=== PATIENT | female | born 1985 | race Caucasian/White ===

== ENCOUNTER 2017-02-05 17:31 | Inpatient (IN) ==
[2017-02-05 17:53] LABS: Bilirubin,Urine Negative (Negative); Blood,Urine Moderate (Negative); Clarity,Urine Clear (Clear); Color,Urine Yellow (Yellow); Glucose,Urine (UA) >=1000 mg/dL (Normal); Ketones,Urine Trace mg/dL (Negative); Leukocyte Esterase,Urine Negative (Negative); Nitrite,Urine Negative (Negative); Protein,Urine Negative (Neg-Trace); Specific Gravity,Urine > 1.030 (1.010-1.025); Urobilinogen,Urine Normal (Normal)
[2017-02-05 17:54] LABS: Bacteria,Urine None Seen per hpf (None-Few); Hyaline Casts,Urine None Seen per lpf (None-Few); Squamous Epithelial Cell,Urine Many per lpf (None-Few)
--- NOTE | 2017-02-05 18:39 | Emergency Department Note ---
Disposition Clinical Impression: Suicidal ideation Disposition: Still a Patient Condition: Fair Referrals: NONE,PCP [Primary Care Provider] - Forms: ED Satisfaction Letter Psych HPI - General Chief Complaint: ED Psychiatric Symptoms Stated Complaint: SI Time Seen by Provider: 02/05/17 17:40 Source: patient Mode of arrival: ambulatory Limitations: no limitations Nursing Notes Reviewed: Yes Vital Signs Reviewed: Yes - History of Present Illness HPI Narrative: Patient presents for evaluation of suicidal ideation. Patient has a history of diabetes, migraines, hypertension, pseudoseizures. Patient states she has been undergoing significant stress at her long-term. Patient was kicked out of her long-term earlier today. Patient states that there is multiple arguments they have been picking on her. Patient states all of these things have caused her to be suicidal. Patient states that she is going to takes sleeping pills and Tylenol to kill herself. Patient is clinically medically cleared for psychiatric evaluation. Laberatory testing is still pending. - Related Data Home Medications Medication Instructions Recorded Confirmed Gabapentin [Neurontin] 300 mg PO BID 10/12/14 02/04/17 Insulin Glargine,Hum.rec.anlog 12 unit SQ HS 10/12/14 02/04/17 [Lantus Solostar] LORazepam [Ativan] 0.5 mg PO TID 10/12/14 02/04/17 Meloxicam [Mobic] 7.5 mg PO BID 10/12/14 02/04/17 Divalproex (12 HR) [Depakote (12 500 mg PO HS 01/13/17 02/04/17 HR)] Duloxetine HCl [Cymbalta] 60 mg PO DAILY 01/13/17 02/04/17 Prazosin HCl [Minipress] 2 mg PO BID 01/13/17 02/04/17 Dicyclomine [Bentyl] 10 mg PO Q8H 02/04/17 02/04/17 Promethazine [Phenergan] 25 mg PO Q6HR 02/04/17 02/04/17 Allergies Allergy/AdvReac Type Severity Reaction Status Date / Time sulfamethoxazole Allergy See Verified 01/24/17 13:44 [From Bactrim] Comments trimethoprim [From Bactrim] Allergy See Verified 01/24/17 13:44 Comments propranolol AdvReac Anxiety Verified 01/08/17 20:25 sumatriptan [From Imitrex] AdvReac Hypotension Verified 01/08/17 20:25 Review of Systems: Constitutional: No fever Vision: No blurred vision ENT: No rhinorrhea Respiratory: No cough Allergic: No allergies : No blood in urine GI: No blood in stool Hematologic: No bruising Dermatologic: No skin rash Musculoskeletal: No pain in the extremities Neuro: No numbness of the extremities Psych: Suicidal thoughts Past Medical History - Past Medical History Medical history: Reports: arthritis, diabetes, hypertension, migraine, other Surgical history: Reports: appendectomy, cholecystectomy, colostomy, other ( Multiple orthopedic surgeries) Psychiatric history: Reports: anxiety, depression, PTSD, previous psychiatric hospitalization, other FRAMING AND HANGING history: Reports: no FRAMING AND HANGING history - Social History Smoking Status: Never smoker Smokeless Tobacco Status: No Alcohol use: Reports: none Drug use: Reports: none Physical Exam General: Well appearing, nontoxic, no acute distress Head: Normocephalic Atraumatic Eyes: PERRL, EOMI ENT: Airway patent, no stridor Neck: supple, no meningismus Chest: Lungs clear to auscultation bilateral Cardiac: Regular rate and rhythm, no murmurs, rubs or gallops Abdomen: soft, nontender, nondistended; no guarding, rebound, or tenderness to percussion Musculoskeletal: Calves symmetric, nontender, no palpable cord Skin: No rash, normal skin tone Neuro: Alert and Oriented to person, place, and time; No focal deficit, CN 2-12 symmetric and intact - General Limitations: no limitations General appearance: alert, in no apparent distress Course Course Narrative: Patient with complaints of suicidal ideation and an active plan. Patient will be signed out to the night resident Dr. Colindres. Vital Signs Temperature 97.8 F 02/05/17 17:32 Pulse Rate 106 02/05/17 17:32 Respiratory Rate 16 02/05/17 17:32 Blood Pressure 123/68 02/05/17 17:32 O2 Sat by Pulse Oximetry 97 02/05/17 17:32 Temperature 97.8 F 02/05/17 17:32 Pulse Rate 106 02/05/17 17:32 Respiratory Rate 16 02/05/17 17:32 Blood Pressure 123/68 02/05/17 17:32 O2 Sat by Pulse Oximetry 97 02/05/17 17:32 Oxygen Delivery Oxygen Delivery Room Air Psych - Lab Data Result diagrams: 02/05/17 18:41 02/05/17 18:41 Lab Results 02/05/17 02/05/17 02/05/17 Range/Units 17:15 17:45 18:41 WBC 11.1 (4.3-11.1) K/mcL RBC 4.28 (3.82-4.97) M/mcL Hgb 12.0 (11.5-15.4) g/dL Hct 37.6 (35.3-44.9) % MCV 87.9 (83.0-100.0) fL MCH 28.0 (28.0-33.3) pg MCHC 31.9 (31.6-35.5) g/dL RDW 13.4 (11.5-14.5) % Plt Count 353 (140-400) K/mcL MPV 9.2 L (9.4-12.4) fL Immature Gran % 0.4 (0-4) % Seg Neutrophils % 65.3 % Lymphocytes % 29.3 % Monocytes % 4.7 % Eosinophils % 0.0 % Basophils % 0.3 % Neutrophils # 7.2 (1.6-8.9) K/mcL Lymphocytes # 3.3 (0.6-4.6) K/mcL Monocytes # 0.5 (0.0-1.3) K/mcL Eosinophils # 0.0 (0.0-0.6) K/mcL Basophils # 0.0 (0.0-0.2) K/mcL Sodium (136-145) mEq/L Potassium (3.5-4.5) mEq/L Chloride (98-109) mEq/L Carbon Dioxide (19-29) mEq/L BUN (7-20) mg/dL Creatinine (0.57-1.11) mg/dL Est GFR ( Amer) (> 60) Est GFR (Non-Af Amer) (> 60) BUN/Creatinine Ratio (6-26) Glucose (70-99) mg/dL Calculated Osmolality (280-300) Calcium (8.6-10.8) mg/dL Total Bilirubin (0.2-1.2) mg/dL Direct Bilirubin (0.0-0.5) mg/dL Indirect Bilirubin (0.0-1.2) mg/dL AST (5-34) Units/L ALT (0-55) Units/L Alkaline Phosphatase (38-126) Units/L Serum Total Protein (6.0-8.3) g/dL Albumin (3.5-5.0) g/dL Globulin (2.4-3.5) g/dL Albumin/Globulin Ratio (1.1-2.2) Urine Color Yellow (Yellow) Urine Clarity Clear (Clear) Urine pH 6.0 (5.0-8.0) pH Units Ur Specific Britton > 1.030 H (1.010-1.025) Urine Protein Negative (Neg-Trace) mg/dL Urine Glucose (UA) >=1000 H (Normal) mg/dL Urine Ketones Trace H (Negative) mg/dL Urine Blood Moderate H (Negative) Urine Nitrite Negative (Negative) Urine Bilirubin Negative (Negative) Urine Urobilinogen Normal (Normal) mg/dL Ur Leukocyte Esterase Negative (Negative) Urine Microscopic RBC 3-5 H (0-3) per hpf Urine Microscopic WBC 5-15 H (0-3) per hpf Ur Squamous Epith Cells Many H (None-Few) per lpf Urine Bacteria None Seen (None-Few) per hpf Hyaline Casts None Seen (None-Few) per lpf Ur Culture Indicated? NO (NO) Salicylates (15.0-30.0) mg/dL Urine Opiates Screen Negative (Uojlqv=066) ng/mL Acetaminophen (10-30) mcg/mL Ur Barbiturates Screen Negative (Wvmvor=448) ng/mL Ur Phencyclidine Scrn Negative (Cutoff=25) ng/mL Ur Amphetamines Screen Negative (Juewoh=3507) ng/mL U Benzodiazepines Scrn Negative (Ehmahg=854) ng/mL Urine Cocaine Screen Negative (Cutoff= 300) ng/mL U Marijuana (THC) Screen Negative (Cutoff = 50) ng/mL Ethyl Alcohol (0-10) mg/dL 12/14/17 Range/Units 18:41 WBC (4.3-11.1) K/mcL RBC (3.82-4.97) M/mcL Hgb (11.5-15.4) g/dL Hct (35.3-44.9) % MCV (83.0-100.0) fL MCH (28.0-33.3) pg MCHC (31.6-35.5) g/dL RDW (11.5-14.5) % Plt Count (140-400) K/mcL MPV (9.4-12.4) fL Immature Gran % (0-4) % Seg Neutrophils % % Lymphocytes % % Monocytes % % Eosinophils % % Basophils % % Neutrophils # (1.6-8.9) K/mcL Lymphocytes # (0.6-4.6) K/mcL Monocytes # (0.0-1.3) K/mcL Eosinophils # (0.0-0.6) K/mcL Basophils # (0.0-0.2) K/mcL Sodium 137 (136-145) mEq/L Potassium 4.4 (3.5-4.5) mEq/L Chloride 102 (98-109) mEq/L Carbon Dioxide 27 (19-29) mEq/L BUN 12 (7-20) mg/dL Creatinine 0.69 (0.57-1.11) mg/dL Est GFR ( Amer) > 60 (> 60) Est GFR (Non-Af Amer) > 60 (> 60) BUN/Creatinine Ratio 17 (6-26) Glucose 329 H (70-99) mg/dL Calculated Osmolality 297 (280-300) Calcium 9.1 (8.6-10.8) mg/dL Total Bilirubin 0.2 (0.2-1.2) mg/dL Direct Bilirubin 0.1 (0.0-0.5) mg/dL Indirect Bilirubin 0.1 (0.0-1.2) mg/dL AST 11 (5-34) Units/L ALT 10 (0-55) Units/L Alkaline Phosphatase 117 (38-126) Units/L Serum Total Protein 7.4 (6.0-8.3) g/dL Albumin 3.0 L (3.5-5.0) g/dL Globulin 4.4 H (2.4-3.5) g/dL Albumin/Globulin Ratio 0.7 L (1.1-2.2) Urine Color (Yellow) Urine Clarity (Clear) Urine pH (5.0-8.0) pH Units Ur Specific Britton (1.010-1.025) Urine Protein (Neg-Trace) mg/dL Urine Glucose (UA) (Normal) mg/dL Urine Ketones (Negative) mg/dL Urine Blood (Negative) Urine Nitrite (Negative) Urine Bilirubin (Negative) Urine Urobilinogen (Normal) mg/dL Ur Leukocyte Esterase (Negative) Urine Microscopic RBC (0-3) per hpf Urine Microscopic WBC (0-3) per hpf Ur Squamous Epith Cells (None-Few) per lpf Urine Bacteria (None-Few) per hpf Hyaline Casts (None-Few) per lpf Ur Culture Indicated? (NO) Salicylates < 5.0 L (15.0-30.0) mg/dL Urine Opiates Screen (Irqdms=728) ng/mL Acetaminophen < 1.0 L (10-30) mcg/mL Ur Barbiturates Screen (Ynmhqd=043) ng/mL Ur Phencyclidine Scrn (Cutoff=25) ng/mL Ur Amphetamines Screen (Dimepn=9402) ng/mL U Benzodiazepines Scrn (Oaesyy=229) ng/mL Urine Cocaine Screen (Cutoff= 300) ng/mL U Marijuana (THC) Screen (Cutoff = 50) ng/mL Ethyl Alcohol < 10 (0-10) mg/dL Psychiatric Medical Clearance - Medical Clearance Checklist Medical History: Epileptic seizure (Acute) Suicidal ideation (Acute) Abdominal pain (Inactive) Abdominal pain (Inactive) Abdominal pain (Inactive) Abdominal pain (Inactive) Abdominal pain (Inactive) Abdominal pain (Inactive) Acute anxiety (Inactive) Acute anxiety (Inactive) Acute anxiety (Inactive) Anxiety (Inactive) Anxiety (Inactive) Anxiety (Inactive) Bilateral flank pain (Inactive) Bleeding from colostomy stoma (Inactive) Chronic abdominal pain (Inactive) Chronic abdominal pain (Inactive) Chronic knee pain (Inactive) Chronic pain disorder (Inactive) Constipation (Inactive) Depression (Inactive) Diabetes (Inactive) Diabetes (Inactive) Diabetes (Inactive) Gastroenteritis (Inactive) Major depressive disorder, recurrent (Inactive) Mood disorder (Inactive) Nausea (Inactive) Nausea (Inactive) Nausea and vomiting (Inactive) Noncompliance w/medication treatment due to intermit use of medication (Inactive ) PTSD (post-traumatic stress disorder) (Inactive) Panic attack (Inactive) Personality disorder (Inactive) Pharyngitis (Inactive) Pseudoseizure (Inactive) Psychiatric disorder (Inactive) Recurrent dislocation of right patella (Inactive) Suicidal ideation (Inactive) Suicidal ideations (Inactive) UTI (urinary tract infection) (Inactive) Ventral hernia (Inactive) Vomiting and diarrhea (Inactive) No Social History Section defined Current Vitals: Last Vital Signs Temp 97.8 F 02/05/17 17:32 Pulse 106 02/05/17 17:32 Resp 16 02/05/17 17:32 BP 123/68 02/05/17 17:32 Pulse Ox 97 02/05/17 17:32 Abnormal Labs: Abnormal lab results MPV 9.2 fL (9.4-12.4) L 02/05/17 18:41 Glucose 329 mg/dL (70-99) H 02/05/17 18:41 Albumin 3.0 g/dL (3.5-5.0) L 02/05/17 18:41 Globulin 4.4 g/dL (2.4-3.5) H 02/05/17 18:41 Albumin/Globulin Ratio 0.7 (1.1-2.2) L 02/05/17 18:41 Ur Specific Britton > 1.030 (1.010-1.025) H 02/05/17 17:45 Urine Glucose (UA) >=1000 mg/dL (Normal) H 02/05/17 17:45 Urine Ketones Trace mg/dL (Negative) H 02/05/17 17:45 Urine Blood Moderate (Negative) H 02/05/17 17:45 Urine Microscopic RBC 3-5 per hpf (0-3) H 02/05/17 17:45 Urine Microscopic WBC 5-15 per hpf (0-3) H 02/05/17 17:45 Ur Squamous Epith Cells Many per lpf (None-Few) H 02/05/17 17:45 Salicylates < 5.0 mg/dL (15.0-30.0) L 02/05/17 18:41 Acetaminophen < 1.0 mcg/mL (10-30) L 02/05/17 18:41 Attestation Statement - Attestation Attestation: I examined this patient and my medical decision-making was reviewed with the Resident Physician. I agree with the documented findings, disposition and treatment plan as described.
[2017-02-05 18:52] LABS: Basophils % 0.3 %; Hematocrit 37.6 % (35.3-44.9); Immature Granulocytes % 0.4 % (0-4); Lymphocytes # 3.3 K/mcL (0.6-4.6); Lymphocytes % 29.3 %; Mean Corpuscular HGB Conc 31.9 g/dL (31.6-35.5); Mean Corpuscular Volume 87.9 fL (83.0-100.0); Mean Platelet Volume 9.2 fL (9.4-12.4); Monocytes # 0.5 K/mcL (0.0-1.3); Monocytes % 4.7 %; Neutrophils # 7.2 K/mcL (1.6-8.9); Platelet Count 353 K/mcL (140-400); Red Blood Count 4.28 M/mcL (3.82-4.97); Red Cell Distribution Width 13.4 % (11.5-14.5); Segmented Neutrophils % 65.3 %
[2017-02-05 19:07] LABS: Acetaminophen < 1.0 mcg/mL (10-30); Alanine Aminotransferase 10 Units/L (0-55); Albumin/Globulin Ratio 0.7 (1.1-2.2); Alkaline Phosphatase 117 Units/L (38-126); Aspartate Amino Transferase 11 Units/L (5-34); BUN/Creatinine Ratio 17 (6-26); Bilirubin,Direct 0.1 mg/dL (0.0-0.5); Bilirubin,Indirect 0.1 mg/dL (0.0-1.2); Bilirubin,Total 0.2 mg/dL (0.2-1.2); Blood Urea Nitrogen 12 mg/dL (7-20); Calcium 9.1 mg/dL (8.6-10.8); Carbon Dioxide 27 mEq/L (19-29); Chloride 102 mEq/L (98-109); Ethanol < 10 mg/dL (0-10); Globulin 4.4 g/dL (2.4-3.5); Glucose 329 mg/dL (70-99); Osmolality,Calculated 297 (280-300); Potassium 4.4 mEq/L (3.5-4.5); Salicylate < 5.0 mg/dL (15.0-30.0); Sodium 137 mEq/L (136-145); Total Protein 7.4 g/dL (6.0-8.3); eGFR For African Americans > 60 (> 60); eGFR For Non-African Americans > 60 (> 60)
[2017-02-05 19:07] LABS: Amphetamine Screen,Urine Negative ng/mL (Cutoff=1000); Barbiturate Screen,Urine Negative ng/mL (Cutoff=200); Benzodiazepines Screen,Urine Negative ng/mL (Cutoff=200); Cannabinoid Screen,Urine Negative ng/mL (Cutoff = 50); Cocaine Screen,Urine Negative ng/mL (Cutoff= 300); Opiate Screen,Urine Negative ng/mL (Cutoff=300); Phencyclidine Screen,Urine Negative ng/mL (Cutoff=25)
[2017-02-05] MEDS ORDERED: Ibuprofen 600 MG TABLET PO ONE (19:12)
--- NOTE | 2017-02-05 23:41 | Emergency Department Note ---
Disposition Clinical Impression: Suicidal ideation Disposition: Still a Patient Condition: Fair Psych HPI - General Chief Complaint: ED Psychiatric Symptoms Stated Complaint: SI Time Seen by Provider: 02/05/17 17:40 Source: patient Mode of arrival: ambulatory Limitations: no limitations Nursing Notes Reviewed: Yes Vital Signs Reviewed: Yes - History of Present Illness HPI Narrative: 31-year-old female signed out to me by the ED team for suicidal ideation with plan. The patient was signed out by the day team and 1 a consultation was pending. Please refer to their note for history of present illness. - Related Data Home Medications Medication Instructions Recorded Confirmed Gabapentin [Neurontin] 300 mg PO BID 10/12/14 02/06/17 Insulin Glargine,Hum.rec.anlog 12 unit SQ HS 10/12/14 02/06/17 [Lantus Solostar] LORazepam [Ativan] 0.5 mg PO TID 10/12/14 02/06/17 Meloxicam [Mobic] 7.5 mg PO BID 10/12/14 02/06/17 Divalproex (12 HR) [Depakote (12 500 mg PO QAM 01/13/17 02/06/17 HR)] Duloxetine HCl [Cymbalta] 60 mg PO DAILY 01/13/17 02/06/17 Prazosin HCl [Minipress] 2 mg PO BID 01/13/17 02/06/17 Dicyclomine [Bentyl] 10 mg PO Q8H 02/04/17 02/06/17 Promethazine [Phenergan] 25 mg PO Q6HR 02/04/17 02/06/17 Atorvastatin [Lipitor] 10 mg PO HS 02/06/17 02/06/17 DULoxetine [Cymbalta] 20 mg PO DAILY 02/06/17 02/06/17 Divalproex Sodium [Depakote] 250 mg PO HS 02/06/17 02/06/17 Tizanidine HCl 2 mg PO BID 02/06/17 02/06/17 Allergies Allergy/AdvReac Type Severity Reaction Status Date / Time sulfamethoxazole Allergy See Verified 01/24/17 13:44 [From Bactrim] Comments trimethoprim [From Bactrim] Allergy See Verified 01/24/17 13:44 Comments propranolol AdvReac Anxiety Verified 01/08/17 20:25 sumatriptan [From Imitrex] AdvReac Hypotension Verified 01/08/17 20:25 All systems ED: reviewed and negative except as stated. Constitutional: Denies: fever, chills Eyes: Reports: as per HPI ENT ED: Reports: as per HPI Cardiovascular: Denies: chest pain, palpitations Respiratory: Denies: cough, dyspnea Gastrointestinal: Denies: abdominal pain, nausea Genitourinary: Reports: as per HPI Musculoskeletal: Reports: as per HPI Integumentary: Reports: as per HPI Neurological: Reports: as per HPI Psychiatric: Reports: as per HPI Endocrine: Reports: as per HPI Hematological/Lymphatic: Reports: as per HPI Allergic/Immunologic: Reports: as per HPI Past Medical History - Past Medical History Attestation: Yes The following information was validated with the patient. Medical history: Reports: arthritis, diabetes, hypertension, migraine, other Surgical history: Reports: appendectomy, cholecystectomy, colostomy, other ( Multiple orthopedic surgeries) Psychiatric history: Reports: anxiety, depression, PTSD, previous psychiatric hospitalization, other [employer] history: Reports: no [employer] history - Social History Smoking Status: Never smoker Smokeless Tobacco Status: No Alcohol use: Reports: none Drug use: Reports: none Physical Exam - General Limitations: no limitations General appearance: alert, in no apparent distress - Head Head exam: atraumatic, normocephalic, normal inspection - Eye Eye exam: Present: normal appearance. Absent: scleral icterus, conjunctival injection - Chest Chest inspection: Present: normal inspection, symmetric chest wall rise. Absent : tenderness, rash - Respiratory Respiratory exam: Present: normal lung sounds bilaterally, respiratory distress. Absent: wheezes - Cardiovascular Cardiovascular exam: Present: regular rate, normal rhythm, normal heart sounds - Abdominal Exam Abdominal exam: Present: soft, Non-Tender. Absent: distention, guarding, rebound - Extremities Exam Extremities exam: Present: full ROM. Absent: tenderness - Neurological Exam Neurological exam: Present: alert, oriented X3 - Psychiatric Psychiatric exam: Present: depressed, suicidal ideation - Skin Skin exam: Present: warm, intact Course Course Narrative: 31-year-old female signed out by the day team for suicidal ideation with plan. Laboratory results have completed. I have spoke with one A after their consultation and they would like the patient to be placed at an outside psychiatric facility. I provided patient with ibuprofen for muscle aches and Benadryl to help her sleep she states this is normally what she takes at home. Patient is alert and oriented 3 in the room with stable vital signs. Disposition pending placement. - Reevaluation(s) Reevaluation #1: 1A has assessed the patient and feel she needs inpatient psychiatric care. Patient will be held in the emergency department until an opening at the psychiatric [facility] is open. She is alert and oriented 3 in the room with stable vital signs at this time. She agrees with this plan. I will sign the patient out to the day team pending transfer to a facility. Vital Signs Temperature 97.8 F 02/05/17 17:32 Pulse Rate 106 02/05/17 17:32 Respiratory Rate 16 02/05/17 17:32 Blood Pressure 123/68 02/05/17 17:32 O2 Sat by Pulse Oximetry 97 02/05/17 17:32 Temperature 97.5 F L 02/06/17 21:00 Pulse Rate 63 02/06/17 21:00 Respiratory Rate 16 02/06/17 21:00 Blood Pressure 116/76 02/06/17 21:00 O2 Sat by Pulse Oximetry 97 02/06/17 05:40 Oxygen Delivery Oxygen Delivery Room Air Psych - Lab Data Result diagrams: 02/05/17 18:41 02/05/17 18:41 Lab Results 02/05/17 02/05/17 02/05/17 Range/Units 17:15 17:45 18:41 WBC 11.1 (4.3-11.1) K/mcL RBC 4.28 (3.82-4.97) M/mcL Hgb 12.0 (11.5-15.4) g/dL Hct 37.6 (35.3-44.9) % MCV 87.9 (83.0-100.0) fL MCH 28.0 (28.0-33.3) pg MCHC 31.9 (31.6-35.5) g/dL RDW 13.4 (11.5-14.5) % Plt Count 353 (140-400) K/mcL MPV 9.2 L (9.4-12.4) fL Immature Gran % 0.4 (0-4) % Seg Neutrophils % 65.3 % Lymphocytes % 29.3 % Monocytes % 4.7 % Eosinophils % 0.0 % Basophils % 0.3 % Neutrophils # 7.2 (1.6-8.9) K/mcL Lymphocytes # 3.3 (0.6-4.6) K/mcL Monocytes # 0.5 (0.0-1.3) K/mcL Eosinophils # 0.0 (0.0-0.6) K/mcL Basophils # 0.0 (0.0-0.2) K/mcL Sodium (136-145) mEq/L Potassium (3.5-4.5) mEq/L Chloride (98-109) mEq/L Carbon Dioxide (19-29) mEq/L BUN (7-20) mg/dL Creatinine (0.57-1.11) mg/dL Est GFR ( Amer) (> 60) Est GFR (Non-Af Amer) (> 60) BUN/Creatinine Ratio (6-26) Glucose (70-99) mg/dL POC Glucose (58-89) Calculated Osmolality (280-300) Calcium (8.6-10.8) mg/dL Total Bilirubin (0.2-1.2) mg/dL Direct Bilirubin (0.0-0.5) mg/dL Indirect Bilirubin (0.0-1.2) mg/dL AST (5-34) Units/L ALT (0-55) Units/L Alkaline Phosphatase (38-126) Units/L Serum Total Protein (6.0-8.3) g/dL Albumin (3.5-5.0) g/dL Globulin (2.4-3.5) g/dL Albumin/Globulin Ratio (1.1-2.2) Beta-Hydroxybutyric Acd (0.02-0.27) mmol/L Urine Color Yellow (Yellow) Urine Clarity Clear (Clear) Urine pH 6.0 (5.0-8.0) pH Units Ur Specific [place] > 1.030 H (1.010-1.025) Urine Protein Negative (Neg-Trace) mg/dL Urine Glucose (UA) >=1000 H (Normal) mg/dL Urine Ketones Trace H (Negative) mg/dL Urine Blood Moderate H (Negative) Urine Nitrite Negative (Negative) Urine Bilirubin Negative (Negative) Urine Urobilinogen Normal (Normal) mg/dL Ur Leukocyte Esterase Negative (Negative) Urine Microscopic RBC 3-5 H (0-3) per hpf Urine Microscopic WBC 5-15 H (0-3) per hpf Ur Squamous Epith Cells Many H (None-Few) per lpf Urine Bacteria None Seen (None-Few) per hpf Hyaline Casts None Seen (None-Few) per lpf Ur Culture Indicated? NO (NO) Salicylates (15.0-30.0) mg/dL Urine Opiates Screen Negative (Djfwff=616) ng/mL Acetaminophen (10-30) mcg/mL Ur Barbiturates Screen Negative (Kfbycw=519) ng/mL Ur Phencyclidine Scrn Negative (Cutoff=25) ng/mL Ur Amphetamines Screen Negative (Klrwka=2385) ng/mL U Benzodiazepines Scrn Negative (Yuyyms=864) ng/mL Urine Cocaine Screen Negative (Cutoff= 300) ng/mL U Marijuana (THC) Screen Negative (Cutoff = 50) ng/mL Ethyl Alcohol (0-10) mg/dL 02/05/17 02/05/17 02/06/17 Range/Units 18:41 18:41 07:46 WBC (4.3-11.1) K/mcL RBC (3.82-4.97) M/mcL Hgb (11.5-15.4) g/dL Hct (35.3-44.9) % MCV (83.0-100.0) fL MCH (28.0-33.3) pg MCHC (31.6-35.5) g/dL RDW (11.5-14.5) % Plt Count (140-400) K/mcL MPV (9.4-12.4) fL Immature Gran % (0-4) % Seg Neutrophils % % Lymphocytes % % Monocytes % % Eosinophils % % Basophils % % Neutrophils # (1.6-8.9) K/mcL Lymphocytes # (0.6-4.6) K/mcL Monocytes # (0.0-1.3) K/mcL Eosinophils # (0.0-0.6) K/mcL Basophils # (0.0-0.2) K/mcL Sodium 137 (136-145) mEq/L Potassium 4.4 (3.5-4.5) mEq/L Chloride 102 (98-109) mEq/L Carbon Dioxide 27 (19-29) mEq/L BUN 12 (7-20) mg/dL Creatinine 0.69 (0.57-1.11) mg/dL Est GFR ( Amer) > 60 (> 60) Est GFR (Non-Af Amer) > 60 (> 60) BUN/Creatinine Ratio 17 (6-26) Glucose 329 H (70-99) mg/dL POC Glucose 185 H (58-89) Calculated Osmolality 297 (280-300) Calcium 9.1 (8.6-10.8) mg/dL Total Bilirubin 0.2 (0.2-1.2) mg/dL Direct Bilirubin 0.1 (0.0-0.5) mg/dL Indirect Bilirubin 0.1 (0.0-1.2) mg/dL AST 11 (5-34) Units/L ALT 10 (0-55) Units/L Alkaline Phosphatase 117 (38-126) Units/L Serum Total Protein 7.4 (6.0-8.3) g/dL Albumin 3.0 L (3.5-5.0) g/dL Globulin 4.4 H (2.4-3.5) g/dL Albumin/Globulin Ratio 0.7 L (1.1-2.2) Beta-Hydroxybutyric Acd 0.10 (0.02-0.27) mmol/L Urine Color (Yellow) Urine Clarity (Clear) Urine pH (5.0-8.0) pH Units Ur Specific [place] (1.010-1.025) Urine Protein (Neg-Trace) mg/dL Urine Glucose (UA) (Normal) mg/dL Urine Ketones (Negative) mg/dL Urine Blood (Negative) Urine Nitrite (Negative) Urine Bilirubin (Negative) Urine Urobilinogen (Normal) mg/dL Ur Leukocyte Esterase (Negative) Urine Microscopic RBC (0-3) per hpf Urine Microscopic WBC (0-3) per hpf Ur Squamous Epith Cells (None-Few) per lpf Urine Bacteria (None-Few) per hpf Hyaline Casts (None-Few) per lpf Ur Culture Indicated? 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) Borderline personality disorder (Acute) PCOS (polycystic ovarian syndrome) (Acute) Dwarfism (Acute) Abdominal pain (Inactive) Abdominal pain (Inactive) Abdominal pain (Inactive) Abdominal pain (Inactive) Abdominal pain (Inactive) Abdominal pain (Inactive) Acute anxiety (Inactive) Acute anxiety (Inactive) Acute anxiety (Inactive) Anxiety (Inactive) Anxiety (Inactive) Anxiety (Inactive) Bilateral flank pain (Inactive) Bleeding from colostomy stoma (Inactive) Chronic abdominal pain (Inactive) Chronic abdominal pain (Inactive) Chronic knee pain (Inactive) Chronic pain disorder (Inactive) Constipation (Inactive) Depression (Inactive) Diabetes (Inactive) Diabetes (Inactive) Diabetes (Inactive) Gastroenteritis (Inactive) Major depressive disorder, recurrent (Inactive) Mood disorder (Inactive) Nausea (Inactive) Nausea (Inactive) Nausea and vomiting (Inactive) Noncompliance w/medication treatment due to intermit use of medication (Inactive ) PTSD (post-traumatic stress disorder) (Inactive) Panic attack (Inactive) Personality disorder (Inactive) Pharyngitis (Inactive) Pseudoseizure (Inactive) Psychiatric disorder (Inactive) Recurrent dislocation of right patella (Inactive) Suicidal ideation (Inactive) Suicidal ideations (Inactive) UTI (urinary tract infection) (Inactive) Ventral hernia (Inactive) Vomiting and diarrhea (Inactive) No Social History Section defined Current Vitals: Last Vital Signs Temp 97.5 F L 02/06/17 21:00 Pulse 63 02/06/17 21:00 Resp 16 02/06/17 21:00 BP 116/76 02/06/17 21:00 Pulse Ox 97 02/06/17 05:40 Abnormal Labs: Abnormal lab results MPV 9.2 fL (9.4-12.4) L 02/05/17 18:41 Glucose 329 mg/dL (70-99) H 02/05/17 18:41 POC Glucose 273 (58-89) H 02/06/17 20:45 Albumin 3.0 g/dL (3.5-5.0) L 02/05/17 18:41 Globulin 4.4 g/dL (2.4-3.5) H 02/05/17 18:41 Albumin/Globulin Ratio 0.7 (1.1-2.2) L 02/05/17 18:41 Ur Specific [place] > 1.030 (1.010-1.025) H 02/05/17 17:45 Urine Glucose (UA) >=1000 mg/dL (Normal) H 02/05/17 17:45 Urine Ketones Trace mg/dL (Negative) H 02/05/17 17:45 Urine Blood Moderate (Negative) H 02/05/17 17:45 Urine Microscopic RBC 3-5 per hpf (0-3) H 02/05/17 17:45 Urine Microscopic WBC 5-15 per hpf (0-3) H 02/05/17 17:45 Ur Squamous Epith Cells Many per lpf (None-Few) H 02/05/17 17:45 Salicylates < 5.0 mg/dL (15.0-30.0) L 02/05/17 18:41 Acetaminophen < 1.0 mcg/mL (10-30) L 02/05/17 18:41 Attestation Statement - Attestation Attestation: I examined this patient and my medical decision-making was reviewed with the Resident Physician. I agree with the documented findings, disposition and treatment plan as described.
[2017-02-05] MEDS ORDERED: Insulin DETEMIR 100 UNIT/ML X5UNITS SQ ONE (23:58)
--- NOTE | 2017-02-06 07:57 | Emergency Department Note ---
START Narrative - START START: Patient taken over from the nighttime physician Dr. Hammond. Patient is to be placed by psychiatric team at this time. I will reestablish to make sure that the pink slip and chart. Patient's medical clearances are to being established. Psychiatric placement to be done at this time. Provided the patient in the a.m. shift. No other changes in medical presentation or vital signs. Clearance will be completed. Repeat Accu-Chek was 185 at this time. Vital signs otherwise stable at this point. Medical clearance and placement of established at this point 0945 Patient will be admitted to our facility for psychiatric evaluation. Bed placement to be established at this time
--- NOTE | 2017-02-06 13:29 | Psychiatry History & Physical ---
Date of Encounter: 02/06/17 Time of Encounter: 13:20 History of Present Illness Patient Stated Chief Complaint: I am homeless and I am going to kill myself Medicare Admission Attestation: For traditional Medicare patients the provided hospital inpatient services are reasonable and necessary and in the case of services not specified as inpatient -only under 42 CFR 419.22 (n), that they are appropriately provided as inpatient services in accordance 42 CFR 412.3. For Critical Access Hospital the patient may reasonably be expected to be discharged or transferred to a hospital within 96 hours after admission to the Critical Access Hospital. Admitted From: Emergency Dept History of Present Illness: Ms. Collins is a 31 year old female This patient is known to want a I been able to review to the recent discharge summary. The patient was in the [facility] and she had a disagreement with the diabetes clinical manager there. She was brought to the emergency room. At that time she complains worsening PTSD and stated that she would kill herself. Specific reasons were not always given but she indicated that she did not want to go to the [facility]. In fact she said that she could go to another place [facility]. However the patient's predicament necessitated hospitalization very History of present illness. The patient reports developing PTSD 5 years ago stressors that her father she recalls having dissociation or hallucinations when he on March 30. She is able to identify depersonalization flashbacks seeing evidence of things emesis as a slide show. The patient's been treated in the most recent medicine prazosin at 2 mg twice a day has been helpful. The patient has been continuing counseling but reports that she is reached a therapeutic impasse. She can get past her mother's but cannot get past her father's . 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 She is currently on Depakote 500 every morning 250 2 PM. She was also told that she had hydrocephalus. She is on gabapentin for pain she is on Cymbalta for pain when she is on no other anticonvulsants that I can say. The patient has been told that she has reported borderline personality disorder. She has been in counseling since the time that she was born. The patient notes that when her grandmother she began having problems. She reports as a child she may have had inattention in school. The patient reports that she has PCO S, polycystic ovary disease and that she has oligomenorrhea. When she attempted to get control she was told that she could not have any children because this would interfere with her abdominal surgery. The patient is 4 feet 6 inches tall. She has dwarfism. The etiology of the dwarfism is not now. She reports that she was placed on growth hormone but grew only 1 inch. Shoes she never had genetic testing as a child. She has a positive family history for short stature. This includes her sister who is 4 foot 9 and members of her father's family who are probably for tender below. Past psychiatric history reveals the patient has multiple psychiatric hospitalizations the readers referred to this but she tends to call the unit from time to time and has a variety of interpersonal difficulties. Past medical history. Surgery there are multiple abdominal surgeries and the patient has had a colostomy placed. 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 She was told that she spent 6 days in the hospital after and that she had jaundice after she has never had a ventricle peritoneal shunt or any other treatment for hydrocephalus. Illnesses: Diabetes mellitus arthritis degenerative joint disease PCO S UTI history of blocked biliary duct. Allergies act from, Imitrex, propranolol. The patient was born 3 weeks premature. Social history: The patient lived all over but primarily in [place] in [place]. She attended some college but she got sicker and had surgery. She has had 7 knee surgeries she has had 4 stomach surgeries she never . Family history: Is positive for mother who had 3-4 mental breakdowns. The patient's father had paranoia and then later when he got sick developed PBA bows untreated a paternal uncle had trouble with alcohol. The patient denies any family history of drug abuse or suicide. Review of systems. The patient's had a colonoscopy. She is currently on no control. She is AB 0. Past Med Surg Social Fam HX - Past Medical History Medical history: arthritis, diabetes, hypertension, migraine, other - Past Surgical History Surgical History: appendectomy, cholecystectomy, colostomy, other - Social History Smoking Status: Never smoker Smokeless Tobacco Status: No Alcohol use: none Drug use: none - Family History Father History Unknown: Yes Adopted: [place]: Red Collins Age: 50 Family Member Ethnicity: Non- Living Status: Age at : 50 Cause of : heart failure secondary to diabetes Hx Family Cardiac Disorders: Yes Hx Family Respiratory Disorders: No Hx Family Cancer: No Hx Family GI Disorders: Yes (IBS) Hx Family Genitourinary Disorders: No Hx Family Endocrine Disorder: Yes (diabetes) Hx Family Musculoskeletal Disorders: Yes (BTK amputee bilateral secondary to diabetes) Hx Family Neuromuscular Disorders: No Hx Family Neurologic Disorders: No Hx Family HEENT Disorders: No Hx Family Autoimmune Disorders: No Hx Family Reproductive Disorders: No Hx Family Psychosocial Disorders: Yes (paranoia) Hx Family Medical Disorders: Yes Medications & Allergies Gabapentin [Neurontin] 300 mg PO BID 10/12/14 [History] Insulin Glargine,Hum.rec.anlog [Lantus Solostar] 12 unit SQ HS 10/12/14 [History ] LORazepam [Ativan] 0.5 mg PO TID 10/12/14 [History] Meloxicam [Mobic] 7.5 mg PO BID 10/12/14 [History] Divalproex (12 HR) [Depakote (12 HR)] 500 mg PO QAM 01/13/17 [History] Duloxetine HCl [Cymbalta] 60 mg PO DAILY 01/13/17 [History] Prazosin HCl [Minipress] 2 mg PO BID 01/13/17 [History] Dicyclomine [Bentyl] 10 mg PO Q8H 02/04/17 [History] Promethazine [Phenergan] 25 mg PO Q6HR 02/04/17 [History] Atorvastatin [Lipitor] 10 mg PO HS 02/06/17 [History] DULoxetine [Cymbalta] 20 mg PO DAILY 02/06/17 [History] Divalproex Sodium [Depakote] 250 mg PO HS 02/06/17 [History] Tizanidine HCl 2 mg PO BID 02/06/17 [History] 3 Allergy/AdvReac Type Severity Reaction Status Date / Time sulfamethoxazole Allergy See Verified 01/24/17 13:44 [From Bactrim] Comments trimethoprim [From Bactrim] Allergy See Verified 01/24/17 13:44 Comments propranolol AdvReac Anxiety Verified 01/08/17 20:25 sumatriptan [From Imitrex] AdvReac Hypotension Verified 01/08/17 20:25 Review of Systems Gastrointestinal: Reports: constipation Musculoskeletal: Reports: back pain, myalgia Psychiatric: Reports: suicidal ideation, homicidal ideation, mood swings Mental Status Exam Patient orientation: Yes Person, Yes Time, Yes Place, Yes Circumstance Level of alertness: Follows commands Patient appearance: Well Groomed Behavior: anxious, hostile Psychomotor activity: Normal Eye contact: Maintains Eye Contact Mood description: Depressed, Anxious Affect description: full range Speech pattern: Appropriate Speech volume: Normal Thought process: Logical Thought content: Yes Suicidal ideation, Yes Obsessive thoughts Attention span: Capable of Focused Attention Memory description: Grossly Intact Patient reliability: Questionable Historian Intelligence estimate: Average Judgment: Fair Insight: Partial Exam - HEENT Eye exam IM: Present: EOMI ENT exam IM: Present: mucous membranes dry - Neurological Neurological exam IM: Present: CN II-XII intact, oriented X3 - Respiratory Respiratory exam IM: Present: CTAB - GI/Abdominal GI/Abdominal exam IM: Present: distended - Extremities Extremities exam IM: Present: full ROM - Skin Skin exam IM: Present: dry Results - Vital Signs Vital signs: Temp Pulse Resp BP Pulse Ox 98.2 F 83 18 105/73 97 02/06/17 10:25 02/06/17 10:25 02/06/17 10:25 02/06/17 10:25 02/06/17 05:40 - Drug Levels and Toxicology Drug Levels and Toxicology: high blood sugar - Labs Labs: Laboratory Last Values WBC 11.1 K/mcL (4.3-11.1) 02/05/17 18:41 RBC 4.28 M/mcL (3.82-4.97) 02/05/17 18:41 Hgb 12.0 g/dL (11.5-15.4) 02/05/17 18:41 Hct 37.6 % (35.3-44.9) 02/05/17 18:41 MCV 87.9 fL (83.0-100.0) 02/05/17 18:41 MCH 28.0 pg (28.0-33.3) 02/05/17 18:41 MCHC 31.9 g/dL (31.6-35.5) 02/05/17 18:41 RDW 13.4 % (11.5-14.5) 02/05/17 18:41 Plt Count 353 K/mcL (140-400) 02/05/17 18:41 MPV 9.2 fL (9.4-12.4) L 02/05/17 18:41 Immature Gran % 0.4 % (0-4) 02/05/17 18:41 Seg Neutrophils % 65.3 % 02/05/17 18:41 Lymphocytes % 29.3 % 02/05/17 18:41 Monocytes % 4.7 % 02/05/17 18:41 Eosinophils % 0.0 % 02/05/17 18:41 Basophils % 0.3 % 02/05/17 18:41 Neutrophils # 7.2 K/mcL (1.6-8.9) 02/05/17 18:41 Lymphocytes # 3.3 K/mcL (0.6-4.6) 02/05/17 18:41 Monocytes # 0.5 K/mcL (0.0-1.3) 02/05/17 18:41 Eosinophils # 0.0 K/mcL (0.0-0.6) 02/05/17 18:41 Basophils # 0.0 K/mcL (0.0-0.2) 02/05/17 18:41 Sodium 137 mEq/L (136-145) 02/05/17 18:41 Potassium 4.4 mEq/L (3.5-4.5) 02/05/17 18:41 Chloride 102 mEq/L (98-109) 02/05/17 18:41 Carbon Dioxide 27 mEq/L (19-29) 02/05/17 18:41 BUN 12 mg/dL (7-20) 02/05/17 18:41 Creatinine 0.69 mg/dL (0.57-1.11) 02/05/17 18:41 Est GFR ( Amer) > 60 (> 60) 02/05/17 18:41 Est GFR (Non-Af Amer) > 60 (> 60) 02/05/17 18:41 BUN/Creatinine Ratio 17 (6-26) 02/05/17 18:41 Glucose 329 mg/dL (70-99) H 02/05/17 18:41 POC Glucose 185 (58-89) H 02/06/17 07:46 Calculated Osmolality 297 (280-300) 02/05/17 18:41 Calcium 9.1 mg/dL (8.6-10.8) 02/05/17 18:41 Total Bilirubin 0.2 mg/dL (0.2-1.2) 02/05/17 18:41 Direct Bilirubin 0.1 mg/dL (0.0-0.5) 02/05/17 18:41 Indirect Bilirubin 0.1 mg/dL (0.0-1.2) 02/05/17 18:41 AST 11 Units/L (5-34) 02/05/17 18:41 ALT 10 Units/L (0-55) 02/05/17 18:41 Alkaline Phosphatase 117 Units/L (38-126) 02/05/17 18:41 Serum Total Protein 7.4 g/dL (6.0-8.3) 02/05/17 18:41 Albumin 3.0 g/dL (3.5-5.0) L 02/05/17 18:41 Globulin 4.4 g/dL (2.4-3.5) H 02/05/17 18:41 Albumin/Globulin Ratio 0.7 (1.1-2.2) L 02/05/17 18:41 Beta-Hydroxybutyric Acd 0.10 mmol/L (0.02-0.27) 02/05/17 18:41 Urine Color Yellow (Yellow) 02/05/17 17:45 Urine Clarity Clear (Clear) 02/05/17 17:45 Urine pH 6.0 pH Units (5.0-8.0) 02/05/17 17:45 Ur Specific [place] > 1.030 (1.010-1.025) H 02/05/17 17:45 Urine Protein Negative mg/dL (Neg-Trace) 02/05/17 17:45 Urine Glucose (UA) >=1000 mg/dL (Normal) H 02/05/17 17:45 Urine Ketones Trace mg/dL (Negative) H 02/05/17 17:45 Urine Blood Moderate (Negative) H 02/05/17 17:45 Urine Nitrite Negative (Negative) 02/05/17 17:45 Urine Bilirubin Negative (Negative) 02/05/17 17:45 Urine Urobilinogen Normal mg/dL (Normal) 02/05/17 17:45 Ur Leukocyte Esterase Negative (Negative) 02/05/17 17:45 Urine Microscopic RBC 3-5 per hpf (0-3) H 02/05/17 17:45 Urine Microscopic WBC 5-15 per hpf (0-3) H 02/05/17 17:45 Ur Squamous Epith Cells Many per lpf (None-Few) H 02/05/17 17:45 Urine Bacteria None Seen per hpf (None-Few) 02/05/17 17:45 Hyaline Casts None Seen per lpf (None-Few) 12 17:45 Ur Culture Indicated? NO (NO) 02/05/17 17:45 Salicylates < 5.0 mg/dL (15.0-30.0) L 02/05/17 18:41 Urine Opiates Screen Negative ng/mL (Reyhbh=132) 02/05/17 17:15 Acetaminophen < 1.0 mcg/mL (10-30) L 02/05/17 18:41 Ur Barbiturates Screen Negative ng/mL (Bgkcnn=586) 02/05/17 17:15 Ur Phencyclidine Scrn Negative ng/mL (Cutoff=25) 02/05/17 17:15 Ur Amphetamines Screen Negative ng/mL (Ncxeuw=2835) 02/05/17 17:15 U Benzodiazepines Scrn Negative ng/mL (Bmkpkg=459) 02/05/17 17:15 Urine Cocaine Screen Negative ng/mL (Cutoff= 300) 02/05/17 17:15 U Marijuana (THC) Screen Negative ng/mL (Cutoff = 50) 02/05/17 17:15 Ethyl Alcohol < 10 mg/dL (0-10) 02/05/17 18:41 Assessment and Plan (1) Chronic post-traumatic stress disorder Current visit: Yes Status: Acute Plan: Admit inpatient for safety and stabilization, Close observation Additional Plan: This patient may benefit from trazodone 25 mg daily at bedtime. Cymbalta is being used for pain and is currently at 80 mg per day. It may help with the pain from a pinched nerve. For patients with PNES and antidepressant may be helpful such as an SSRI. The patient could also be considered for Pristiq worked that seem which may help with pain and movement. The patient is on Depakote this can sometimes make worsening oligomenorrhea. A Depakote level would be helpful. The patient may benefit from reexamining placement the [facility] as this may be a appropriate facility. Ongoing psychotherapy would be helpful for this patient in reducing seizure- like events may also be helpful. The patient's report of PTSD is based on traumatic events that were not necessarily life-threatening but this may be useful diagnosis help guide therapy. The patient reports that Remeron made her suicidal so this medicine should be avoided. Risks, benefits, side effects, alternatives discussed w/pt: Yes Patient agreeable to treatment: Yes (2) Conversion disorder with seizures or convulsions Current visit: Yes Status: Acute Plan: Monitor sleep, Monitor appetite Risks, benefits, side effects, alternatives discussed w/pt: Yes Patient agreeable to treatment: Yes Plans for Post Hospital Care: Home (3) Borderline personality disorder Current visit: Yes Status: Acute Plan: Encourage participation in unit milieu, Secure weapons Risks, benefits, side effects, alternatives discussed w/pt: Yes Patient agreeable to treatment : Yes Plans for Post Hospital Care: Home (4) PCOS (polycystic ovarian syndrome) Current visit: Yes Status: Acute Risks, benefits, side effects, alternatives discussed w/pt: No Patient agreeable to treatment: No Plans for Post Hospital Care: Home (5) Dwarfism Current visit: Yes Status: Acute Risks, benefits, side effects, alternatives discussed w/pt: No Patient agreeable to treatment: No Plans for Post Hospital Care: Home (6) Suicidal ideation Current visit: Yes Status: Acute Plan: Suicide Precautions per unit protocol, Secure weapons Risks, benefits, side effects, alternatives discussed w/pt: Yes Patient agreeable to treatment : Yes Plans for Post Hospital Care: Home
[2017-02-06] MEDS ORDERED: *HR* LORazepam 2 MG/ML VIAL IM PRN (16:13)
[2017-02-06] MEDS ORDERED: Mag Hydrox/Al Hydrox/Simeth 30 ML UDC PO PRN (16:13)
[2017-02-06] MEDS ORDERED: hydrOXYzine pamoate 25 MG CAPSULE PO PRN (16:13)
[2017-02-06] MEDS ORDERED: Haloperidol Lactate 5 MG/ML VIAL IM PRN (16:13)
[2017-02-06] MEDS ORDERED: *HR* LORazepam 1 MG TABLET PO PRN (16:13)
[2017-02-06] MEDS ORDERED: MOM Conc 10 ML UD.LIQ PO PRN (16:13)
[2017-02-06] MEDS: Acetaminophen 325 MG TABLET PO PRN (17:40)
[2017-02-06] MEDS: *HR* LORazepam 0.5 MG TABLET PO SCH ×2 (17:41→21:14)
[2017-02-06] MEDS: traZODone 50 MG TABLET PO SCH (21:02)
[2017-02-06] MEDS: Divalproex (12 HR) 250 MG TABLET PO SCH (21:03)
[2017-02-06] MEDS: tiZANidine 4 MG TABLET PO SCH (21:03)
[2017-02-06] MEDS: Gabapentin 300 MG CAPSULE PO SCH (21:05)
[2017-02-06] MEDS: Insulin DETEMIR 100 UNIT/ML X5UNITS SQ SCH (21:05)
[2017-02-07] MEDS ORDERED: NON-FORMULARY MEDICATION 1 EACH EACH (Duloxetine Hcl [Cymbalta] 60 MG) PO SCH (09:00)
[2017-02-07] MEDS: tiZANidine 4 MG TABLET PO SCH ×2 (09:30→20:46)
[2017-02-07] MEDS: Divalproex (12 HR) 500 MG TABLET PO SCH (09:35)
[2017-02-07] MEDS: traZODone 50 MG TABLET PO SCH ×2 (09:36→20:45)
[2017-02-07] MEDS: *HR* LORazepam 0.5 MG TABLET PO SCH ×3 (09:37→20:46)
[2017-02-07] MEDS: Gabapentin 300 MG CAPSULE PO SCH ×2 (09:42→20:45)
[2017-02-07] MEDS: Baclofen 10 MG TABLET PO PRN ×3 (11:00→16:22)
[2017-02-07] MEDS: Acetaminophen 325 MG TABLET PO PRN ×2 (11:01→16:28)
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
[2017-02-07] MEDS: Insulin DETEMIR 100 UNIT/ML X5UNITS SQ SCH (20:44)
[2017-02-07] MEDS: Divalproex (12 HR) 250 MG TABLET PO SCH (20:45)
[2017-02-08] MEDS: Divalproex (12 HR) 500 MG TABLET PO SCH (09:36)
[2017-02-08] MEDS: traZODone 50 MG TABLET PO SCH ×2 (09:36→21:15)
[2017-02-08] MEDS: *HR* LORazepam 0.5 MG TABLET PO SCH ×3 (09:37→21:19)
[2017-02-08] MEDS: tiZANidine 4 MG TABLET PO SCH ×2 (09:37→21:17)
[2017-02-08] MEDS: Gabapentin 300 MG CAPSULE PO SCH ×2 (09:38→22:09)
--- NOTE | 2017-02-08 11:19 | Psychiatry Progress Note ---
Date of Encounter: 02/08/17 Time of Encounter: 11:14 Subjective Interval history: Very behavioral. Will threaten to stop her insulin or refuse her psych meds when she doesn't get her way. Very dramatic about pain last night and this morning. Focused on her hernia which is a longstanding issue. May be having abdominal pain due to gastroparesis secondary to elevated blood sugars. Client may be attributing discomfort to her hernia but the source is likely her diabetes. Lowest accucheck yesterday was in the 270s. Takes Levemir at night but she clearly needs better insulin coverage. Will ask the hospitalist to see her today. Client is denying SI today. States her biggest issue that she wants addressed is anger management. Discussed titrating Depakote for better mood regulation. VPA level drawn but results not back yet. Will adjust dose based on results. Placement will be difficult. Staff are working on placing her but client has burned so many bridges nowhere is willing to consider her yet. Review of Systems Constitutional: Denies: fever, chills, weakness, weight change Eyes: Denies: eye pain, vision change Ears, Nose, Throat: Denies: ear pain, throat pain, dental pain, hearing loss, congestion Cardiovascular: Denies: chest pain, palpitations, dyspnea on exertion Respiratory: Denies: cough, dyspnea, wheezes Gastrointestinal: Reports: abdominal pain Musculoskeletal: Reports: back pain, joint pain, myalgia Neurological: Reports: abnormal gait Psychiatric: Reports: suicidal ideation, homicidal ideation, mood swings Objective: Exam Patient orientation: Yes Person, Yes Time, Yes Place Level of alertness: Alert Patient appearance: Unkempt Behavior: calm, cooperative Psychomotor activity: Slowed Eye contact: Maintains Eye Contact Mood description: Angry Affect description: congruent with mood Speech pattern: Normal rate, Normal rhythm, Normal tone Speech volume: Normal Thought process: Linear Thought content: No Suicidal ideation, No Homicidal ideation, No Overt delusions Perceptual disturbances: No Auditory hallucinations, No Visual hallucinations Judgment: Limited Insight: Partial Results - Vital Signs Vital Signs: Temp Pulse Resp BP Pulse Ox 98.2 F 91 18 112/73 97 02/07/17 20:15 02/07/17 20:15 02/07/17 20:15 02/07/17 20:15 02/06/17 05:40 - Labs Labs: Laboratory Results - last 24 hr 02/07/17 02/07/17 02/07/17 11:12 13:17 13:24 POC Glucose 513 H* 493 H* Valproic Acid 15 L 02/07/17 02/07/17 02/07/17 16:39 20:27 20:40 POC Glucose 309 H 407 H* 404 H* Valproic Acid 02/08/17 08:00 POC Glucose 276 H Valproic Acid Assessment and Plan (1) Chronic post-traumatic stress disorder Current visit: Yes Status: Acute Plan: Continue hospitalization, Close observation, Suicide Precautions per unit protocol, Encourage participation in unit milieu, Group Therapy, Monitor sleep, Monitor appetite Risks, benefits, side effects, alternatives discussed w/pt: Yes Patient agreeable to treatment: Yes (2) Borderline personality disorder Current visit: Yes Status: Acute Plan: Continue hospitalization, Close observation, Suicide Precautions per unit protocol, Encourage participation in unit milieu, Group Therapy, Monitor sleep, Monitor appetite Risks, benefits, side effects, alternatives discussed w/pt: Yes Patient agreeable to treatment: Yes Consult Discharge Plan - Plan Referrals: NONE,PCP [Primary Care Provider] -
[2017-02-08] MEDS ORDERED: Dextrose Gel 15 GM PO PRN ×2 (13:29)
[2017-02-08] MEDS ORDERED: D5% in Water 1,000 ML IVC PRN (13:29)
[2017-02-08] MEDS ORDERED: *HR* Dextrose 50 % in Water (Syg) 50 ML SYRINGE IVP PRN (13:29)
[2017-02-08 14:18] LABS: Basophils % 0.3 %; Hematocrit 36.7 % (35.3-44.9); Hemoglobin 11.6 g/dL (11.5-15.4); Immature Granulocytes % 0.2 % (0-4); Lymphocytes # 3.3 K/mcL (0.6-4.6); Lymphocytes % 30.9 %; Mean Corpuscular HGB Conc 31.6 g/dL (31.6-35.5); Mean Corpuscular Hemoglobin 28.3 pg (28.0-33.3); Mean Corpuscular Volume 89.5 fL (83.0-100.0); Mean Platelet Volume 10.2 fL (9.4-12.4); Monocytes # 0.5 K/mcL (0.0-1.3); Monocytes % 4.7 %; Neutrophils # 6.9 K/mcL (1.6-8.9); Platelet Count 268 K/mcL (140-400); Red Cell Distribution Width 13.3 % (11.5-14.5); Segmented Neutrophils % 63.9 %
[2017-02-08] MEDS ORDERED: Insulin DETEMIR 100 UNIT/ML X5UNITS SQ SCH (14:30)
[2017-02-08 14:32] LABS: BUN/Creatinine Ratio 15 (6-26); Blood Urea Nitrogen 14 mg/dL (7-20); Calcium 9.9 mg/dL (8.6-10.8); Carbon Dioxide 22 mEq/L (19-29); Chloride 98 mEq/L (98-109); Osmolality,Calculated 303 (280-300); Potassium 5.1 mEq/L (3.5-4.5); Sodium 131 mEq/L (136-145); eGFR For African Americans > 60 (> 60); eGFR For Non-African Americans > 60 (> 60)
[2017-02-08 14:43] LABS: Glucose 644 mg/dL (70-99)
[2017-02-08] MEDS: Insulin LISPRO 300 UNITS/3 ML VIAL SQ SCH ×4 (14:46→21:23)
--- NOTE | 2017-02-08 15:06 | Internal Medicine Consult Note ---
Date of Encounter: 02/08/17 Time of Encounter: 13:00 - Assessment and Plan (1) Diabetes mellitus Current Visit: Yes Status: Acute Assessment and plan: Blood sugars severely elevated this afternoon. Will place patient on 10 units of Levemir daily in addition to 12 units at bedtime. We will also place her on sliding scale coverage. Monitor blood sugars closely. Patient does have mild anion gap acidosis which should correct as her blood sugars come down. We will recheck basic panel in 4 hours. Does remain at risk for worsening DKA if her blood sugars do not improve appropriately. We will continue to follow along with you. Qualifiers: Diabetes mellitus type: type 2 Diabetes mellitus complication status: with hyperglycemia Diabetes mellitus longterm insulin use: with terminal carman use Qualified Code(s): E11.65 - Type 2 diabetes mellitus with hyperglycemia; Z79.4 - intermediate accountant (current) use of insulin; Z79.4 - correction (current) use of insulin ; Z79.4 - intermediate accountant (current) use of insulin; Z79.4 - correction (current) use of insulin Internal Medicine - CN: HPI - Data of Consult Patient: new to practice Consult date: 02/08/17 Requesting Physician: Erich Perea - Consult Narrative Reason for consult: Diabetes management History of present illness: Ms. Collins is a 31 year old female patient with a history of type 2 diabetes mellitus who is currently admitted to psychiatric unit for suicidal ideation as been having increased blood sugars over the past couple of days. At home she is on Levemir 12 units that she takes at bedtime. She had previously been on metformin but that was stopped a few months back. Since then her blood sugars have been running in the 200s whenever she checks it. In the hospital, her blood sugars have been running between 200 and 500 but this afternoon her blood sugar recordings were greater than 600. She received 12 units of Levemir last night. She is currently not on any sliding scale coverage. Patient denies any shortness of breath. No chest pain. She does report an episode of bleeding surrounding her colostomy stoma a few days back. She was seen in the ER at that time and advised to follow up with surgery as outpatient. She has not had any new episodes of bleeding here. She also complains of pain and is asking for narcotic medications. Past Med Surg Social Fam HX - Past Medical History Attestation: Yes The following information was validated with the patient. Source: patient Medical history: arthritis, diabetes, hypertension, migraine, other Psychiatric history: anxiety, depression, PTSD, previous psychiatric hospitalization, other - Past Surgical History Surgical History: appendectomy, cholecystectomy, colostomy, other (Multiple orthopedic surgeries) - Social History Smoking Status: Never smoker Packs per day: 0 Smokeless Tobacco Status: No Alcohol use: none Drug use: none - Family History Father History Unknown: Yes Adopted: [place]: Red Collins Age: 50 Family Member Ethnicity: Non- Living Status: Age at : 50 Cause of : heart failure secondary to diabetes Hx Family Cardiac Disorders: Yes Hx Family Respiratory Disorders: No Hx Family Cancer: No Hx Family GI Disorders: Yes (IBS) Hx Family Genitourinary Disorders: No Hx Family Endocrine Disorder: Yes (diabetes) Hx Family Musculoskeletal Disorders: Yes (BTK amputee bilateral secondary to diabetes) Hx Family Neuromuscular Disorders: No Hx Family Neurologic Disorders: No Hx Family HEENT Disorders: No Hx Family Autoimmune Disorders: No Hx Family Reproductive Disorders: No Hx Family Psychosocial Disorders: Yes (paranoia) Hx Family Medical Disorders: Yes - Constitutional Constitutional: no chills, no fatigue, no malaise - Cardiovascular Cardiovascular ROS IM: no chest pain, no dyspnea, no dyspnea on exertion, no palpitations - Respiratory Respiratory: no cough, no dyspnea, no wheezing, no chest congestion, no excessive phlegm production, no change in phlegm color - Gastrointestinal Gastrointestinal: no abdominal pain, no dyspepsia, no nausea, no vomiting - Neurological Neurological ROS: no abnormal hearing, no abnormal movements, no abnormal speech , no convulsions, no disequilibrium, no tingling, no tremor(s), no weakness - Psychiatric Psychiatric: anxiety Internal Medicine - CN: Meds Gabapentin [Neurontin] 300 mg PO BID 10/12/14 [History] Insulin Glargine,Hum.rec.anlog [Lantus Solostar] 12 unit SQ HS 10/12/14 [History ] LORazepam [Ativan] 0.5 mg PO TID 10/12/14 [History] Meloxicam [Mobic] 7.5 mg PO BID 10/12/14 [History] Divalproex (12 HR) [Depakote (12 HR)] 500 mg PO QAM 01/13/17 [History] Duloxetine HCl [Cymbalta] 60 mg PO DAILY 01/13/17 [History] Prazosin HCl [Minipress] 2 mg PO BID 01/13/17 [History] Dicyclomine [Bentyl] 10 mg PO Q8H 02/04/17 [History] Promethazine [Phenergan] 25 mg PO Q6HR 02/04/17 [History] Atorvastatin [Lipitor] 10 mg PO HS 02/06/17 [History] DULoxetine [Cymbalta] 20 mg PO DAILY 02/06/17 [History] Divalproex Sodium [Depakote] 250 mg PO HS 02/06/17 [History] Tizanidine HCl 2 mg PO BID 02/06/17 [History] 3 Allergy/AdvReac Type Severity Reaction Status Date / Time sulfamethoxazole Allergy See Verified 01/24/17 13:44 [From Bactrim] Comments trimethoprim [From Bactrim] Allergy See Verified 01/24/17 13:44 Comments propranolol AdvReac Anxiety Verified 01/08/17 20:25 sumatriptan [From Imitrex] AdvReac Hypotension Verified 01/08/17 20:25 Internal Medicine - CN: Exam - Constitutional Vitals: Temp Pulse Resp BP Pulse Ox 97.1 F L 59 16 107/68 97 02/08/17 09:00 02/08/17 09:00 02/08/17 09:00 02/08/17 09:00 02/06/17 05:40 General appearance IM: Present: cooperative, A&O X 3, obese, answers questions appropriately - Eye Eye exam: Present: EOMI - Respiratory Respiratory exam: Present: CTAB. Absent: accessory muscle use, respiratory distress, wheezes, tachypnea - Cardiovascular Cardiovascular exam IM: Present: RRR, +S1, +S2. Absent: bradycardia, distant heart sounds - GI/Abdominal GI/Abdominal exam IM: Present: soft. Absent: tenderness - Extremities Exam Extremities exam IM: Present: full ROM. Absent: pedal edema - Neurological Exam Neurological exam: Present: alert, CN II-XII intact, oriented X3 - Psychiatric Psychiatric exam: Present: flat affect - Skin Skin exam IM: Present: dry, intact Internal Medicine - CN: Reslt - Labs CBC & Chem 7: 02/08/17 13:36 02/08/17 13:36 Labs: Short CBC 02/08/17 Range/Units 13:36 WBC 10.7 (4.3-11.1) K/mcL Hgb 11.6 (11.5-15.4) g/dL Hct 36.7 (35.3-44.9) % Plt Count 268 (140-400) K/mcL Neutrophils # 6.9 (1.6-8.9) K/mcL BMP 02/08/17 13:36 Sodium 131 L Potassium 5.1 H Chloride 98 Carbon Dioxide 22 BUN 14 Creatinine 0.91 Glucose 644 H* Calcium 9.9 Consult Discharge Plan - Plan Referrals: NONE,PCP [Primary Care Provider] -
[2017-02-08] MEDS: Acetaminophen 325 MG TABLET PO PRN (16:15)
--- NOTE | 2017-02-08 16:32 | Event Note ---
Date of Encounter: 02/08/17 Time of Encounter: 16:31 Blood sugars apparently decreased from 500 to 100 after she received asked for insulin for high correctional sliding scale. Will decrease sliding scale coverage. Hold off on Levemir dosage that was ordered for this afternoon. Continue to monitor blood sugars closely every hour for the next couple of hours. Initiate hypoglycemic protocol if blood sugars <60.
[2017-02-08 20:53] LABS: BUN/Creatinine Ratio 16 (6-26); Blood Urea Nitrogen 15 mg/dL (7-20); Calcium 9.7 mg/dL (8.6-10.8); Carbon Dioxide 26 mEq/L (19-29); Chloride 102 mEq/L (98-109); Glucose 263 mg/dL (70-99); Osmolality,Calculated 294 (280-300); Potassium 4.2 mEq/L (3.5-4.5); Sodium 137 mEq/L (136-145); eGFR For African Americans > 60 (> 60); eGFR For Non-African Americans > 60 (> 60)
[2017-02-08] MEDS ORDERED: Insulin LISPRO 300 UNITS/3 ML VIAL SQ SCH (21:00)
[2017-02-08] MEDS: Divalproex (12 HR) 250 MG TABLET PO SCH (21:19)
[2017-02-08] MEDS: Insulin DETEMIR 100 UNIT/ML X5UNITS SQ SCH (21:24)
[2017-02-08] MEDS: Baclofen 10 MG TABLET PO PRN (21:34)
[2017-02-09] MEDS: Insulin LISPRO 300 UNITS/3 ML VIAL SQ SCH ×4 (08:06→21:02)
[2017-02-09] MEDS: traZODone 50 MG TABLET PO SCH ×2 (08:44→21:00)
[2017-02-09] MEDS: *HR* LORazepam 0.5 MG TABLET PO SCH ×3 (08:45→21:01)
[2017-02-09] MEDS: tiZANidine 4 MG TABLET PO SCH ×2 (08:45→20:59)
[2017-02-09] MEDS: Divalproex (12 HR) 500 MG TABLET PO SCH (08:46)
[2017-02-09] MEDS: Gabapentin 300 MG CAPSULE PO SCH ×2 (08:46→21:01)
[2017-02-09] MEDS ORDERED: Insulin DETEMIR 100 UNIT/ML X5UNITS SQ SCH (09:00)
--- NOTE | 2017-02-09 13:17 | Psychiatry Progress Note ---
Date of Encounter: 02/09/17 Time of Encounter: 12:35 Subjective Interval history: Geri is a 31-year-old female with a history of multiple medical issues and depression as well as personality disorder who presented to the hospital with increasing depression and voicing suicidal thoughts. Patient had some behavioral issues at her prison and she would not like to return there. She was admitted to for psych stabilization. Today patient is irritable and frustrated when we asked her to come out of her room to be interviewed. She is very fixated on her stomach pain which she admits is chronic. She demands pain medications and a surgery consult. Patient denies nausea or vomiting. She denies constipation or diarrhea. She reports long-standing chronic pain related to a hernia. Reports depression and suicidal ideations because of this pain. She is unsure of current meds are helping or not with her mood. She initially reports she does not want to return to the prison but then states that she will when her symptoms improve. Review of Systems Gastrointestinal: Reports: abdominal pain (Chronic). Denies: nausea, vomiting, diarrhea, constipation, hematemisis, melena, hematochezia Psychiatric: Reports: abnormal sleep pattern, suicidal ideation, difficulty concentrating, hopelessness, irritability, mood swings Objective: Exam Patient orientation: Yes Person, Yes Time, Yes Place Level of alertness: Alert Patient appearance: Appropriate Behavior: uncooperative, dramatic Psychomotor activity: Normal Eye contact: Fleeting Contact Mood description: Depressed, Irritable Affect description: labile, incongruent with mood Speech pattern: Normal rate, Normal rhythm, Normal tone Speech volume: Loud Thought process: Intact Thought content: Yes Suicidal ideation, No Homicidal ideation Perceptual disturbances: No Auditory hallucinations, No Visual hallucinations Judgment: Limited Insight: Minimal Results - Vital Signs Vital Signs: Temp Pulse Resp BP Pulse Ox 97.8 F 84 18 116/68 97 02/09/17 09:00 02/09/17 09:00 02/09/17 09:00 02/09/17 09:00 02/06/17 05:40 - Labs Labs: Laboratory Results - last 24 hr 02/08/17 02/08/17 02/08/17 13:36 13:36 14:35 WBC 10.7 RBC 4.10 Hgb 11.6 Hct 36.7 MCV 89.5 MCH 28.3 MCHC 31.6 RDW 13.3 Plt Count 268 MPV 10.2 Immature Gran % 0.2 Seg Neutrophils % 63.9 Lymphocytes % 30.9 Monocytes % 4.7 Eosinophils % 0.0 Basophils % 0.3 Neutrophils # 6.9 Lymphocytes # 3.3 Monocytes # 0.5 Eosinophils # 0.0 Basophils # 0.0 Sodium 131 L Potassium 5.1 H Chloride 98 Carbon Dioxide 22 BUN 14 Creatinine 0.91 Est GFR ( Amer) > 60 Est GFR (Non-Af Amer) > 60 BUN/Creatinine Ratio 15 Glucose 644 H* POC Glucose 516 H* Calculated Osmolality 303 H Calcium 9.9 02/08/17 02/08/17 02/08/17 16:17 17:16 19:24 WBC RBC Hgb Hct MCV MCH MCHC RDW Plt Count MPV Immature Gran % Seg Neutrophils % Lymphocytes % Monocytes % Eosinophils % Basophils % Neutrophils # Lymphocytes # Monocytes # Eosinophils # Basophils # Sodium Potassium Chloride Carbon Dioxide BUN Creatinine Est GFR ( Amer) Est GFR (Non-Af Amer) BUN/Creatinine Ratio Glucose POC Glucose 102 H 194 H 253 H Calculated Osmolality Calcium 02/08/17 02/08/17 02/09/17 20:05 21:21 08:00 WBC RBC Hgb Hct MCV MCH MCHC RDW Plt Count MPV Immature Gran % Seg Neutrophils % Lymphocytes % Monocytes % Eosinophils % Basophils % Neutrophils # Lymphocytes # Monocytes # Eosinophils # Basophils # Sodium 137 Potassium 4.2 Chloride 102 Carbon Dioxide 26 BUN 15 Creatinine 0.92 Est GFR ( Amer) > 60 Est GFR (Non-Af Amer) > 60 BUN/Creatinine Ratio 16 Glucose 263 H POC Glucose 332 H 293 H Calculated Osmolality 294 Calcium 9.7 02/09/17 11:28 WBC RBC Hgb Hct MCV MCH MCHC RDW Plt Count MPV Immature Gran % Seg Neutrophils % Lymphocytes % Monocytes % Eosinophils % Basophils % Neutrophils # Lymphocytes # Monocytes # Eosinophils # Basophils # Sodium Potassium Chloride Carbon Dioxide BUN Creatinine Est GFR ( Amer) Est GFR (Non-Af Amer) BUN/Creatinine Ratio Glucose POC Glucose 341 H Calculated Osmolality Calcium Assessment and Plan (1) Chronic post-traumatic stress disorder Current visit: Yes Status: Acute Plan: Continue hospitalization, Close observation, Suicide Precautions per unit protocol, Encourage participation in unit milieu, Group Therapy, Monitor sleep, Monitor appetite Additional Plan: Continue current medications. Continue suicide precautions. We will coordinate with prison to discuss D/C planning. Risks, benefits, side effects, alternatives discussed w/pt: Yes Patient agreeable to treatment: Yes (2) Borderline personality disorder Current visit: Yes Status: Acute Plan: Continue hospitalization, Close observation, Suicide Precautions per unit protocol, Encourage participation in unit milieu, Group Therapy, Monitor sleep, Monitor appetite Additional Plan: Encourage group attendance and positive coping strategies. Risks, benefits, side effects, alternatives discussed w/pt: Yes Patient agreeable to treatment: Yes Consult Discharge Plan - Plan Referrals: NONE,PCP [Primary Care Provider] -
[2017-02-09] MEDS: Acetaminophen 325 MG TABLET PO PRN (16:26)
--- NOTE | 2017-02-09 17:09 | Event Note ---
Date of Encounter: 02/09/17 Time of Encounter: 17:08 Reviewed patient's lab work and blood sugars since yesterday. Appear to be better controlled at this time compared to yesterday. No longer having greater than 400 blood sugars. We will continue current sliding scale regimen. Patient received 5 units of Levemir this morning. We will increase it to 10 units from tomorrow. Continue evening dose of 12 units. Continue to monitor blood sugars before meals and at bedtime. At this time, we will sign off. Please call us with any further questions.
[2017-02-09] MEDS: Divalproex (12 HR) 250 MG TABLET PO SCH (21:01)
[2017-02-09] MEDS: Insulin DETEMIR 100 UNIT/ML X5UNITS SQ SCH (21:02)
[2017-02-10] MEDS: Acetaminophen 325 MG TABLET PO PRN ×3 (00:20→21:27)
[2017-02-10] MEDS: Baclofen 10 MG TABLET PO PRN ×2 (00:21→15:26)
[2017-02-10] MEDS: Divalproex (12 HR) 500 MG TABLET PO SCH (09:28)
[2017-02-10] MEDS: *HR* LORazepam 0.5 MG TABLET PO SCH ×3 (09:28→21:28)
[2017-02-10] MEDS: traZODone 50 MG TABLET PO SCH ×2 (09:28→21:28)
[2017-02-10] MEDS: Gabapentin 300 MG CAPSULE PO SCH ×2 (09:32→21:28)
[2017-02-10] MEDS: tiZANidine 4 MG TABLET PO SCH ×2 (09:35→21:28)
[2017-02-10] MEDS: Insulin DETEMIR 100 UNIT/ML X5UNITS SQ SCH ×2 (09:40→21:29)
[2017-02-10] MEDS: Insulin LISPRO 300 UNITS/3 ML VIAL SQ SCH ×4 (09:41→21:26)
--- NOTE | 2017-02-10 11:56 | Psychiatry Progress Note ---
Date of Encounter: 02/10/17 Time of Encounter: 09:45 Subjective Interval history: Geri is seen today for follow-up. She reports that she is upset with this provider and the staff because "nobody care about what happens to me." She remains very somatically preoccupied and focused on pain. Staff has been able to get ahold of the long-term director who reports that patient has been calling the police on a daily basis and other behavioral problems. Whenever she goes to the hospital to give her pain medication and this is created a problem because patient is always wanting to go to the ER for more pain meds. Patient denies that she is doing any of these things and states that she has real pain. We discussed that not all kinds of pain are treated with pain medications. Encourage patient to consider alternative options to treat her medical issues. She denies suicidal ideations today. She is willing to consider returning to the long-term. We discussed the possibility of behavior plan. Review of Systems Constitutional: Denies: fever, chills, weakness, weight change Eyes: Denies: eye pain, vision change Ears, Nose, Throat: Denies: ear pain, throat pain, dental pain, hearing loss, congestion Cardiovascular: Denies: chest pain, palpitations, dyspnea on exertion Respiratory: Denies: cough, dyspnea, wheezes Gastrointestinal: Reports: abdominal pain (chronic) Musculoskeletal: Denies: joint swelling, joint pain Neurological: Denies: headache, weakness, numbness, memory loss Psychiatric: Reports: depression, change in appetite, difficulty concentrating, irritability, mood swings. Denies: suicidal ideation Objective: Exam Patient orientation: Yes Person, Yes Time, Yes Place Level of alertness: Alert Patient appearance: Well-nourished, Unkempt Behavior: uncooperative, dramatic Psychomotor activity: Normal Eye contact: Minimal Contact Mood description: Labile, Irritable Affect description: labile Speech pattern: Normal rate, Normal rhythm, Normal tone Speech volume: Loud Thought process: Intact, Logical Thought content: No Suicidal ideation, No Homicidal ideation Perceptual disturbances: No Auditory hallucinations, No Visual hallucinations Judgment: Limited Insight: Minimal Results - Vital Signs Vital Signs: Temp Pulse Resp BP Pulse Ox 97.4 F L 81 16 114/84 97 02/10/17 09:00 02/10/17 09:00 02/10/17 09:00 02/10/17 09:00 02/06/17 05:40 - Labs Labs: Laboratory Results - last 24 hr 02/09/17 02/09/17 02/10/17 16:30 20:58 08:01 POC Glucose 207 H 313 H 239 H 02/10/17 11:30 POC Glucose 288 H Assessment and Plan (1) Chronic post-traumatic stress disorder Current visit: Yes Status: Acute Plan: Continue hospitalization, Close observation, Suicide Precautions per unit protocol, Encourage participation in unit milieu, Group Therapy, Monitor sleep, Monitor appetite Additional Plan: Continue current medications. Encouraged patient to use coping strategies and group attendance area Risks, benefits, side effects, alternatives discussed w/pt: Yes Patient agreeable to treatment: Yes (2) Borderline personality disorder Current visit: Yes Status: Acute Plan: Continue hospitalization, Close observation, Suicide Precautions per unit protocol, Encourage participation in unit milieu, Group Therapy, Monitor sleep, Monitor appetite Additional Plan: We will work on a behavior plan for patient and plan to DC back to long-term once plan is in place. Risks, benefits, side effects, alternatives discussed w/pt: Yes Patient agreeable to treatment: Yes Consult Discharge Plan - Plan Referrals: NONE,PCP [Primary Care Provider] -
[2017-02-10] MEDS: Divalproex (12 HR) 250 MG TABLET PO SCH (21:29)
[2017-02-11] MEDS: Acetaminophen 325 MG TABLET PO PRN (02:59)
[2017-02-11] MEDS: Baclofen 10 MG TABLET PO PRN (03:00)
[2017-02-11] MEDS: Insulin LISPRO 300 UNITS/3 ML VIAL SQ SCH ×2 (08:36→11:49)
[2017-02-11] MEDS: Divalproex (12 HR) 500 MG TABLET PO SCH (08:51)
[2017-02-11] MEDS: Gabapentin 300 MG CAPSULE PO SCH (08:52)
[2017-02-11] MEDS: *HR* LORazepam 0.5 MG TABLET PO SCH (08:52)
[2017-02-11] MEDS: tiZANidine 4 MG TABLET PO SCH (08:52)
[2017-02-11] MEDS: traZODone 50 MG TABLET PO SCH (08:53)
[2017-02-11] MEDS: Insulin DETEMIR 100 UNIT/ML X5UNITS SQ SCH (08:55)
[2017-02-11 09:07] VITALS: BP 90/63
--- NOTE | 2017-02-11 11:21 | Discharge Summary ---
Date of Encounter: 02/11/17 Time of Encounter: 11:00 Diagnosis - Discharge Diagnosis (1) Chronic post-traumatic stress disorder Priority: Primary Status: Acute (2) Borderline personality disorder Priority: Secondary Status: Acute Medications - Discharge Medications Gabapentin [Neurontin] 300 mg PO BID 10/12/14 [History] LORazepam [Ativan] 0.5 mg PO TID 10/12/14 [History] Meloxicam [Mobic] 7.5 mg PO BID 10/12/14 [History] Divalproex (12 HR) [Depakote (12 HR)] 500 mg PO QAM 01/13/17 [History] Prazosin HCl [Minipress] 2 mg PO BID 01/13/17 [History] Dicyclomine [Bentyl] 10 mg PO Q8H 02/04/17 [History] Atorvastatin [Lipitor] 10 mg PO HS 02/06/17 [History] DULoxetine [Cymbalta] 20 mg PO DAILY 02/06/17 [History] Divalproex Sodium [Depakote] 250 mg PO HS 02/06/17 [History] Tizanidine HCl 2 mg PO BID 02/06/17 [History] Insulin DETEMIR [Levemir] 10 unit SQ DAILY [id number] 02/11/17 [Rx] Insulin DETEMIR [Levemir] 12 unit SQ HS [id number] 02/11/17 [Rx] Insulin LISPRO [HumaLOG] 0 units SQ HS vial 02/11/17 [Rx] Insulin LISPRO [HumaLOG] 0 units SQ TIDAC vial 02/11/17 [Rx] traZODone [TraZODone] 25 mg PO BID tablet 02/11/17 [Rx] 3 Allergy/AdvReac Type Severity Reaction Status Date / Time sulfamethoxazole Allergy See Verified 01/24/17 13:44 [From Bactrim] Comments trimethoprim [From Bactrim] Allergy See Verified 01/24/17 13:44 Comments propranolol AdvReac Anxiety Verified 01/08/17 20:25 sumatriptan [From Imitrex] AdvReac Hypotension Verified 01/08/17 20:25 Results Procedures and tests throughout hospitalization: Completed Lab Orders Category Date Time Status BMP [Basic Metabolic Panel] Stat Lab 02/08/17 13:36 Completed Basic Metabolic Panel Routine Lab 02/08/17 20:05 Completed CBC [Complete Blood Count] [HEME] Stat Lab 02/08/17 13:36 Completed Valproate Routine Lab 02/07/17 11:12 Completed Provider Date of admission: 02/06/17 09:46 Primary care physician: PCP NONE Consults: 02/06/17 11:26 Consult to Pastoral Services [CONS] Routine Comment: 02/08/17 11:22 Consult to Hospitalist [CONS] Routine Consulting Provider: Hospitalist Deena Reason for Consult: Uncontrolled Diabetes. Blood sugars have ranged from 200s-400s Time Notified: 11:23 Call Completed: Yes 02/10/17 15:33 Consult to Pastoral Services [CONS] Routine Comment: Pt wants to be seen again Discharging clinician: Zena Schreiber Assessment and Plan - Patient/Caregiver Discharge Instructions Activity: resume usual activities as tolerated Diet: regular diet Additional Instructions: Patient has been educated and verbalizes understanding that medication is only one part of her treatment. Patient has been thoroughly assessed by multiple care providers and found not to need any additional controlled medications for management of her condition. Patient has been educated and verbalizes understanding that a significant portion of her improvement in functioning will come from continued regular work and practice with adopting new coping skills. Appropriate therapy over time on an outpatient basis is recommended for patient to continue development in this area. Patient has been educated and verbalizes understanding that there are significant consequences associated with disrespectful, disruptive, threatening language and behaviors. Patient has been educated and verbalizes understanding that exaggeration of or falsification of information, and misuse of emergency services can carry significant consequences as well. Patient is able to acknowledge how the above has impacted her relationally and socially, and has impacted maintenance of stable housing over the years. Patient is aware that though she is able to return to her current living situation, continuation of the above could result in loss of current housing. Patient has been educated and verbalizes understanding of difficulty in accessing alternative housing in the region secondary to own behavior history and limited resources. - Follow up Plan Follow up with: Richardson Cash [Outside] - 02/13/17 3:00 pm (The above appointment is with Taniya Elizondo for outpatient mental health counseling services. You will see Estefany Romero for outpatient psychiatric assessment and medication management services on 03/05/2017 at 10:00am.) Functional capacity at discharge: independent ambulation Overall status at discharge: Stable Disposition: Home, Self-Care Hospital Course Hospital course: Ms. Collins is a 32 year old female with a history of posttraumatic stress disorder and severe borderline personality disorder who presented to the hospital with increasing agitation and behavioral issues at her prison. She also reported depression and anger issues. Patient was admitted to [facility] for psychiatric stabilization. She was incorporated into the therapeutic milieu group and individual as well as recreational therapy. She was placed on suicide precautions and close observation per unit protocol. Throughout the hospital stay patient was educated on the importance of appropriate limits and boundaries setting. We discussed the importance of positive coping strategies. We reviewed that the number of places the patient could stay in this area are limited and that to try to make her current living situation work. Patient was continued on her home medications of Depakote and Cymbalta. Patient did become agitated with staff and peers and disruptive at times. She was redirectable. She was willing to engage in more positive coping strategies and the future. At the time of discharge she denied suicidal or homicidal ideation, intent. She was agreeable to the treatment plan and willing to try to go back to the prison. - Time Spent with Patient Total time spent providing and/or coordinating discharge services: Greater than 30 minutes Quality - Multiple Antipsychotics Patient discharged on 2 or more antipsychotic medications: No Procedures - Procedures Procedures: Medication Management, Crisis Stabilization, Supportive Therapy, Group Therapy, Psychoeducational Therapy Mental Status Exam - Mental Status Exam Patient orientation: Yes Person, Yes Time, Yes Place Level of alertness: Alert Patient appearance: Appropriate, Well Groomed Behavior: cooperative, dramatic Psychomotor activity: Normal Eye contact: Minimal Contact Mood description: Euthymic/stable Affect description: congruent with mood, full range Speech pattern: Normal rate, Normal rhythm, Normal tone Speech Volume: Normal Thought process: Linear, Goal Oriented Thought Content: No Suicidal ideation, No Homicidal ideation, No Overt delusions Perceptual Disturbances: No Auditory hallucinations, No Visual hallucinations Judgment: Limited Insight: Partial
== END 2017-02-11 12:22 | disposition home or self-care (01) | DRG 755 ==
LOC: EMEROO 17:31 → SUATTDRO 02-06 09:46 → 1ANU 02-06 09:46
PROVIDERS: ADMIT Psychiatry & Neurology Forensic Psychiatry; ATTEND Student in an Organized Health Care Education/Training Program

== ENCOUNTER 2017-04-14 10:40 | Inpatient (IN) ==
--- NOTE | 2017-04-14 11:26 | Emergency Department Note ---
Disposition Clinical Impression: Suicidal ideation Depression Qualifiers: Depression Type: unspecified Qualified Code(s): F32.9 - Major depressive disorder, single episode, unspecified Disposition: Admitted As Inpatient Condition: Good Referrals: NONE,PCP [Primary Care Provider] - Forms: ED Satisfaction Letter Time of Disposition: 18:42 Psych HPI - General Chief Complaint: ED Psychiatric Symptoms Stated Complaint: SI / HI Time Seen by Provider: 04/14/17 11:19 Source: patient, family Mode of arrival: ambulatory Limitations: no limitations Nursing Notes Reviewed: Yes Vital Signs Reviewed: Yes - History of Present Illness HPI Narrative: 32-year-old who is having some conflict with family members who states her aunt was concerned that she was going to kill her sister. The patient did send a text stating that she was going to kill her last PM. Pt complaint: suicidal ideation, other (Homicidal ideation) If medical clearance, reason: psychiatric condition Onset (ago): day(s) Duration: constant History of similar episodes: Yes Improves with: none Worsens with: none Context: significant life stressor Alleged intoxication: No Associated Psychiatric Symptoms: none Associated symptoms: Reports: denies other symptoms Traumatic symptoms: denies traumatic injury Treatments prior to arrival: none Self harm or harm to others: admits thoughts of self harm - Related Data Home Medications Medication Instructions Recorded Confirmed Gabapentin [Neurontin] 300 mg PO BID 10/12/14 02/17/17 LORazepam [Ativan] 0.5 mg PO TID 10/12/14 02/17/17 Meloxicam [Mobic] 7.5 mg PO BID 10/12/14 02/17/17 Divalproex (12 HR) [Depakote (12 500 mg PO QAM 01/13/17 02/17/17 HR)] Prazosin HCl [Minipress] 2 mg PO BID 01/13/17 02/17/17 Atorvastatin [Lipitor] 10 mg PO HS 02/06/17 02/17/17 DULoxetine [Cymbalta] 20 mg PO DAILY 02/06/17 02/17/17 Divalproex Sodium [Depakote] 250 mg PO HS 02/06/17 02/17/17 Tizanidine HCl 2 mg PO BID 02/06/17 02/17/17 DULoxetine [Cymbalta] 60 mg PO DAILY 02/17/17 02/17/17 Ondansetron ODT [Zofran ODT] 4 mg SL Q4HR PRN 02/17/17 02/17/17 Promethazine [Phenergan] 25 mg PO Q6HR 02/17/17 02/17/17 Previous Rx's Medication Instructions Recorded Insulin DETEMIR [Levemir] 12 unit SQ HS [id number] 02/11/17 Acetaminophen [Tylenol] 650 mg PO Q6HR PRN #30 tablet 02/17/17 Ondansetron ODT [Zofran ODT] 4 mg SL Q6HR PRN #8 tab.rapdis 02/17/17 Tramadol HCl [Ultram] 2 tab PO TID PRN #15 tab 03/17/17 Docusate [Colace] 100 mg PO BID #20 capsule 03/20/17 Allergies Allergy/AdvReac Type Severity Reaction Status Date / Time sulfamethoxazole Allergy See Verified 04/14/17 10:52 [From Bactrim] Comments trimethoprim [From Bactrim] Allergy See Verified 04/14/17 10:52 Comments propranolol AdvReac Anxiety Verified 04/14/17 10:52 sumatriptan [From Imitrex] AdvReac Hypotension Verified 04/14/17 10:52 All systems ED: reviewed and negative except as stated. Constitutional: Denies: fever, chills, weakness, weight change Eyes: Denies: eye pain, eye discharge, vision change ENT ED: Denies: ear pain, throat pain, dental pain, hearing loss, epistaxis, congestion, dysphagia Cardiovascular: Denies: chest pain, palpitations, dyspnea on exertion, edema, syncope Respiratory: Denies: cough, dyspnea, wheezes, hemoptysis, stridor Gastrointestinal: Denies: abdominal pain, nausea, vomiting, diarrhea, constipation, hematemesis, melena, hematochezia Genitourinary: Denies: dysuria, frequency, hematuria, discharge Musculoskeletal: Denies: back pain, neck pain, arthralgia, myalgia Integumentary: Denies: rash, abrasion, lesions Neurological: Denies: headache, weakness, numbness, paresthesias, confusion, abnormal gait, vertigo Psychiatric: Reports: depression, suicidal thoughts. Denies: anxiety, homicidal thoughts, auditory hallucinations, visual hallucinations Endocrine: Denies: fatigue Hematological/Lymphatic: Denies: easy bleeding, easy bruising Allergic/Immunologic: Denies: facial swelling, urticaria Past Medical History - Past Medical History Medical history: Reports: arthritis, diabetes, hyperlipidemia, migraine, other Surgical history: Reports: appendectomy, cholecystectomy, colostomy, other ( Multiple orthopedic surgeries) Psychiatric history: Reports: anxiety, depression, PTSD, previous psychiatric hospitalization, other SHRUB GROWER history: Reports: no SHRUB GROWER history - Social History Smoking Status: Never smoker Smokeless Tobacco Status: No Alcohol use: Reports: none Drug use: Reports: none Physical Exam - General Limitations: no limitations General appearance: alert, in no apparent distress - Head Head exam: atraumatic, normocephalic, normal inspection - Eye Eye exam: Present: normal appearance, PERRL, EOMI - ENT ENT exam: normal exam, normal oropharynx, mucous membranes moist - Neck Neck exam: Present: normal inspection, full ROM, trachea midline - Chest Chest inspection: Present: normal inspection, symmetric chest wall rise - Respiratory Respiratory exam: Present: normal lung sounds bilaterally - Cardiovascular Cardiovascular exam: Present: regular rate, normal rhythm, normal heart sounds - Abdominal Exam Abdominal exam: Present: soft, Non-Tender. Absent: tenderness, distention, guarding, rebound, rigidity - Extremities Exam Extremities exam: Present: normal inspection, full ROM. Absent: tenderness, pedal edema - Expanded Lower Extremity Exam Neurovascular/Tendon exam: Absent: motor deficit, sensory deficit, tendon deficit Gait: observed and normal - Back Exam Back exam: Present: normal inspection, full ROM. Absent: tenderness - Neurological Exam Neurological exam: Present: alert, oriented X3 - Psychiatric Psychiatric exam: Present: normal affect, normal mood - Skin Skin exam: Present: warm, dry, intact, normal color Course - Consultations Consultation #1: Discussed with psychiatry they will admit her to [facility] Time: 18:41 Vital Signs Temperature 98.0 F 04/14/17 10:45 Pulse Rate 103 04/14/17 10:45 Respiratory Rate 18 04/14/17 10:45 Blood Pressure 96/67 04/14/17 10:45 O2 Sat by Pulse Oximetry 97 04/14/17 10:45 Temperature 98.0 F 04/14/17 10:45 Pulse Rate 98 04/14/17 18:21 Respiratory Rate 18 04/14/17 18:21 Blood Pressure 115/68 04/14/17 18:21 O2 Sat by Pulse Oximetry 98 04/14/17 18:21 Oxygen Delivery Oxygen Delivery Room Air Psych - Lab Data Result diagrams: 04/14/17 11:15 04/14/17 16:00 Lab Results 04/14/17 04/14/17 04/14/17 Range/Units 11:15 11:15 11:15 WBC 12.9 H (4.3-11.1) K/mcL RBC 4.56 (3.82-4.97) M/mcL Hgb 12.4 (11.5-15.4) g/dL Hct 38.8 (35.3-44.9) % MCV 85.1 (83.0-100.0) fL MCH 27.2 L (28.0-33.3) pg MCHC 32.0 (31.6-35.5) g/dL RDW 13.3 (11.5-14.5) % Plt Count 342 (140-400) K/mcL MPV 9.3 L (9.4-12.4) fL Immature Gran % 0.3 (0-4) % Seg Neutrophils % 66.3 % Lymphocytes % 28.1 % Monocytes % 4.8 % Eosinophils % 0.0 % Basophils % 0.5 % Neutrophils # 8.6 (1.6-8.9) K/mcL Lymphocytes # 3.6 (0.6-4.6) K/mcL Monocytes # 0.6 (0.0-1.3) K/mcL Eosinophils # 0.0 (0.0-0.6) K/mcL Basophils # 0.1 (0.0-0.2) K/mcL Reactive Lymphocytes Present A (Not Present) Platelet Estimate Normal (Normal) Large Platelets Present A (Not Present) Sodium 127 L (136-145) mEq/L Potassium 4.8 (3.5-5.1) mEq/L Chloride 95 L (98-107) mEq/L Carbon Dioxide 21 L (23-29) mEq/L BUN 19 (6-20) mg/dL Creatinine 0.58 L (0.60-1.20) mg/dL Est GFR ( Amer) > 60 (> 60) Est GFR (Non-Af Amer) > 60 (> 60) BUN/Creatinine Ratio 33 H (6-26) Glucose 531 H* (70-105) mg/dL Calculated Osmolality 290 (280-300) Calcium 9.9 (8.6-10.3) mg/dL Beta-Hydroxybutyric Acd 0.29 H (0.02-0.27) mmol/L Urine Color (Yellow) Urine Clarity (Clear) Urine pH (5.0-8.0) pH Units Ur Specific [place] (1.010-1.025) Urine Protein (Neg-Trace) mg/dL Urine Glucose (UA) (Normal) mg/dL Urine Ketones (Negative) mg/dL Urine Blood (Negative) Urine Nitrite (Negative) Urine Bilirubin (Negative) Urine Urobilinogen (Normal) mg/dL Ur Leukocyte Esterase (Negative) Urine Test (Negative) Salicylates < 5.0 L (15.0-30.0) mg/dL Urine Opiates Screen (Yreeuf=174) ng/mL Acetaminophen < 1.0 L (10-30) mcg/mL Ur Barbiturates Screen (Ylcski=321) ng/mL Ur Phencyclidine Scrn (Cutoff=25) ng/mL Ur Amphetamines Screen (Grzvqq=2411) ng/mL U Benzodiazepines Scrn (Esbvye=874) ng/mL Urine Cocaine Screen (Cutoff= 300) ng/mL U Marijuana (THC) Screen (Cutoff = 50) ng/mL Ethyl Alcohol < 10 (0-10) mg/dL 04/14/17 04/14/17 04/14/17 Range/Units 11:26 11:26 11:26 WBC (4.3-11.1) K/mcL RBC (3.82-4.97) M/mcL Hgb (11.5-15.4) g/dL Hct (35.3-44.9) % MCV (83.0-100.0) fL MCH (28.0-33.3) pg MCHC (31.6-35.5) g/dL RDW (11.5-14.5) % Plt Count (140-400) K/mcL MPV (9.4-12.4) fL Immature Gran % (0-4) % Seg Neutrophils % % Lymphocytes % % Monocytes % % Eosinophils % % Basophils % % Neutrophils # (1.6-8.9) K/mcL Lymphocytes # (0.6-4.6) K/mcL Monocytes # (0.0-1.3) K/mcL Eosinophils # (0.0-0.6) K/mcL Basophils # (0.0-0.2) K/mcL Reactive Lymphocytes (Not Present) Platelet Estimate (Normal) Large Platelets (Not Present) Sodium (136-145) mEq/L Potassium (3.5-5.1) mEq/L Chloride (98-107) mEq/L Carbon Dioxide (23-29) mEq/L BUN (6-20) mg/dL Creatinine (0.60-1.20) mg/dL Est GFR ( Amer) (> 60) Est GFR (Non-Af Amer) (> 60) BUN/Creatinine Ratio (6-26) Glucose (70-105) mg/dL Calculated Osmolality (280-300) Calcium (8.6-10.3) mg/dL Beta-Hydroxybutyric Acd (0.02-0.27) mmol/L Urine Color Yellow (Yellow) Urine Clarity Clear (Clear) Urine pH 6.0 (5.0-8.0) pH Units Ur Specific [place] > 1.030 H (1.010-1.025) Urine Protein Negative (Neg-Trace) mg/dL Urine Glucose (UA) >=1000 H (Normal) mg/dL Urine Ketones Negative (Negative) mg/dL Urine Blood Negative (Negative) Urine Nitrite Negative (Negative) Urine Bilirubin Negative (Negative) Urine Urobilinogen Normal (Normal) mg/dL Ur Leukocyte Esterase Negative (Negative) Urine Test Negative (Negative) Salicylates (15.0-30.0) mg/dL Urine Opiates Screen Negative (Zrcpoo=015) ng/mL Acetaminophen (10-30) mcg/mL Ur Barbiturates Screen Negative (Xgoqzi=436) ng/mL Ur Phencyclidine Scrn Negative (Cutoff=25) ng/mL Ur Amphetamines Screen Negative (Jllqdl=6400) ng/mL U Benzodiazepines Scrn Negative (Yevsvp=305) ng/mL Urine Cocaine Screen Negative (Cutoff= 300) ng/mL U Marijuana (THC) Screen Negative (Cutoff = 50) ng/mL Ethyl Alcohol (0-10) mg/dL 04/14/17 04/14/17 Range/Units 16:00 16:00 WBC (4.3-11.1) K/mcL RBC (3.82-4.97) M/mcL Hgb (11.5-15.4) g/dL Hct (35.3-44.9) % MCV (83.0-100.0) fL MCH (28.0-33.3) pg MCHC (31.6-35.5) g/dL RDW (11.5-14.5) % Plt Count (140-400) K/mcL MPV (9.4-12.4) fL Immature Gran % (0-4) % Seg Neutrophils % % Lymphocytes % % Monocytes % % Eosinophils % % Basophils % % Neutrophils # (1.6-8.9) K/mcL Lymphocytes # (0.6-4.6) K/mcL Monocytes # (0.0-1.3) K/mcL Eosinophils # (0.0-0.6) K/mcL Basophils # (0.0-0.2) K/mcL Reactive Lymphocytes (Not Present) Platelet Estimate (Normal) Large Platelets (Not Present) Sodium (136-145) mEq/L Potassium (3.5-5.1) mEq/L Chloride (98-107) mEq/L Carbon Dioxide (23-29) mEq/L BUN (6-20) mg/dL Creatinine (0.60-1.20) mg/dL Est GFR ( Amer) (> 60) Est GFR (Non-Af Amer) (> 60) BUN/Creatinine Ratio (6-26) Glucose 194 H (70-105) mg/dL Calculated Osmolality (280-300) Calcium (8.6-10.3) mg/dL Beta-Hydroxybutyric Acd < 0.10 (0.02-0.27) mmol/L Urine Color (Yellow) Urine Clarity (Clear) Urine pH (5.0-8.0) pH Units Ur Specific [place] (1.010-1.025) Urine Protein (Neg-Trace) mg/dL Urine Glucose (UA) (Normal) mg/dL Urine Ketones (Negative) mg/dL Urine Blood (Negative) Urine Nitrite (Negative) Urine Bilirubin (Negative) Urine Urobilinogen (Normal) mg/dL Ur Leukocyte Esterase (Negative) Urine Test (Negative) Salicylates (15.0-30.0) mg/dL Urine Opiates Screen (Ysmejt=397) ng/mL Acetaminophen (10-30) mcg/mL Ur Barbiturates Screen (Kjhlmk=414) ng/mL Ur Phencyclidine Scrn (Cutoff=25) ng/mL Ur Amphetamines Screen (Ldtodw=8938) ng/mL U Benzodiazepines Scrn (Eomjwy=946) ng/mL Urine Cocaine Screen (Cutoff= 300) ng/mL U Marijuana (THC) Screen (Cutoff = 50) ng/mL Ethyl Alcohol (0-10) mg/dL Psychiatric Medical Clearance - Medical Clearance Checklist Does the patient have a NEW psychiatric condition?: No Any abnormalities indicating possible medical illness?: Yes (Hyperglycemia treated in the emergency department) Any history of medical issues?: Yes Medical History: Suicidal ideation (Acute) Chronic post-traumatic stress disorder (Acute) 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) Borderline personality disorder (Acute) PCOS (polycystic ovarian syndrome) (Acute) Dwarfism (Acute) Diabetes mellitus (Acute) Abdominal pain (Inactive) Abdominal pain (Inactive) Abdominal pain (Inactive) Abdominal pain (Inactive) Abdominal pain (Inactive) Abdominal pain (Inactive) Abdominal pain (Inactive) Abdominal pain (Inactive) Acute anxiety (Inactive) Acute anxiety (Inactive) Acute anxiety (Inactive) Anxiety (Inactive) Anxiety (Inactive) Anxiety (Inactive) Bilateral flank pain (Inactive) Bleeding from colostomy stoma (Inactive) Chronic abdominal pain (Inactive) Chronic abdominal pain (Inactive) Chronic knee pain (Inactive) Chronic pain (Inactive) Chronic pain disorder (Inactive) Constipation (Inactive) Depression (Inactive) Depression (Inactive) Diabetes (Inactive) Diabetes (Inactive) Diabetes (Inactive) Emotional crisis (Inactive) Epileptic seizure (Inactive) Gastroenteritis (Inactive) Hyperglycemia (Inactive) Major depressive disorder, recurrent (Inactive) Mood disorder (Inactive) Nausea (Inactive) Nausea (Inactive) Nausea and vomiting (Inactive) Noncompliance w/medication treatment due to intermit use of medication (Inactive ) PTSD (post-traumatic stress disorder) (Inactive) PTSD (post-traumatic stress disorder) (Inactive) Panic attack (Inactive) Personality disorder (Inactive) Pharyngitis (Inactive) Pseudoseizure (Inactive) Psychiatric disorder (Inactive) Recurrent dislocation of right patella (Inactive) Suicidal ideation (Inactive) Suicidal ideations (Inactive) UTI (urinary tract infection) (Inactive) Uncontrolled diabetes mellitus (Inactive) Ventral hernia (Inactive) Viral gastroenteritis (Inactive) Vomiting and diarrhea (Inactive) No Social History Section defined Any abnormal vital signs prior to transfer?: No Current Vitals: Last Vital Signs Temp 98.0 F 04/14/17 10:45 Pulse 98 02/20/18 18:21 Resp 18 04/14/17 18:21 BP 115/68 04/14/17 18:21 Pulse Ox 98 04/14/17 18:21 Is the patient intoxicated or cognitively impaired?: No Psychiatric Lab Panel: Drug Levels and Toxicity 04/14/17 04/14/17 11:15 11:26 Urine Opiates Screen Negative Acetaminophen < 1.0 L Ur Barbiturates Screen Negative Ur Phencyclidine Scrn Negative Ur Amphetamines Screen Negative U Benzodiazepines Scrn Negative Urine Cocaine Screen Negative U Marijuana (THC) Screen Negative Ethyl Alcohol < 10 Any abnormalities on the physical exam?: No Any abnormal labs?: Yes Abnormal Labs: Abnormal lab results WBC 12.9 K/mcL (4.3-11.1) H 04/14/17 11:15 MCH 27.2 pg (28.0-33.3) L 04/14/17 11:15 MPV 9.3 fL (9.4-12.4) L 04/14/17 11:15 Reactive Lymphocytes Present (Not Present) A 04/14/17 11:15 Large Platelets Present (Not Present) A 04/14/17 11:15 Sodium 127 mEq/L (136-145) L 04/14/17 11:15 Chloride 95 mEq/L (98-107) L 04/14/17 11:15 Carbon Dioxide 21 mEq/L (23-29) L 04/14/17 11:15 Creatinine 0.58 mg/dL (0.60-1.20) L 04/14/17 11:15 BUN/Creatinine Ratio 33 (6-26) H 04/14/17 11:15 Glucose 194 mg/dL (70-105) H 04/14/17 16:00 Ur Specific [place] > 1.030 (1.010-1.025) H 04/14/17 11:26 Urine Glucose (UA) >=1000 mg/dL (Normal) H 04/14/17 11:26 Salicylates < 5.0 mg/dL (15.0-30.0) L 04/14/17 11:15 Acetaminophen < 1.0 mcg/mL (10-30) L 04/14/17 11:15 Does the patient require durable medical equiptment?: No Is the patient ambulatory?: Yes Is the patient a fall risk?: No Has the patient been medically cleared?: Yes Statement of Medical Clearance: I have evaluated the patient, reviewed diagnostic information, and certify that the patient's medical condition is sufficiently stable that transfer to the psychiatric unit does not pose a significant risk of deterioration.
[2017-04-14 11:31] LABS: Basophils # 0.1 K/mcL (0.0-0.2); Basophils % 0.5 %; Hematocrit 38.8 % (35.3-44.9); Hemoglobin 12.4 g/dL (11.5-15.4); Immature Granulocytes % 0.3 % (0-4); Lymphocytes # 3.6 K/mcL (0.6-4.6); Lymphocytes % 28.1 %; Mean Corpuscular Hemoglobin 27.2 pg (28.0-33.3); Mean Corpuscular Volume 85.1 fL (83.0-100.0); Mean Platelet Volume 9.3 fL (9.4-12.4); Monocytes # 0.6 K/mcL (0.0-1.3); Monocytes % 4.8 %; Platelet Count 342 K/mcL (140-400); Red Blood Count 4.56 M/mcL (3.82-4.97); Red Cell Distribution Width 13.3 % (11.5-14.5); Segmented Neutrophils % 66.3 %
[2017-04-14 11:41] LABS: Acetaminophen < 1.0 mcg/mL (10-30); Ethanol < 10 mg/dL (0-10); Salicylate < 5.0 mg/dL (15.0-30.0)
[2017-04-14 11:44] LABS: Neutrophils # 8.6 K/mcL (1.6-8.9)
[2017-04-14 11:45] LABS: BUN/Creatinine Ratio 33 (6-26); Blood Urea Nitrogen 19 mg/dL (6-20); Calcium 9.9 mg/dL (8.6-10.3); Carbon Dioxide 21 mEq/L (23-29); Chloride 95 mEq/L (98-107); Glucose 531 mg/dL (70-105); Osmolality,Calculated 290 (280-300); Potassium 4.8 mEq/L (3.5-5.1); Sodium 127 mEq/L (136-145); eGFR For African Americans > 60 (> 60); eGFR For Non-African Americans > 60 (> 60)
[2017-04-14 11:47] LABS: Bilirubin,Urine Negative (Negative); Blood,Urine Negative (Negative); Clarity,Urine Clear (Clear); Color,Urine Yellow (Yellow); Glucose,Urine (UA) >=1000 mg/dL (Normal); Ketones,Urine Negative (Negative); Leukocyte Esterase,Urine Negative (Negative); Nitrite,Urine Negative (Negative); Protein,Urine Negative (Neg-Trace); Specific Gravity,Urine > 1.030 (1.010-1.025); Urobilinogen,Urine Normal (Normal)
[2017-04-14 11:48] LABS: Amphetamine Screen,Urine Negative ng/mL (Cutoff=1000); Barbiturate Screen,Urine Negative ng/mL (Cutoff=200); Benzodiazepines Screen,Urine Negative ng/mL (Cutoff=200); Cannabinoid Screen,Urine Negative ng/mL (Cutoff = 50); Cocaine Screen,Urine Negative ng/mL (Cutoff= 300); Opiate Screen,Urine Negative ng/mL (Cutoff=300); Phencyclidine Screen,Urine Negative ng/mL (Cutoff=25)
[2017-04-14] MEDS ORDERED: Insulin Regular, Human 100 UNIT/ML SQ ONE (11:51)
[2017-04-14 12:09] LABS: Large Platelets Present (Not Present); Platelet Estimate Normal (Normal); Reactive Lymphocytes Present (Not Present)
[2017-04-14] MEDS ORDERED: 0.9 % Sodium Chloride 1,000 ML IVC ONE (13:01)
[2017-04-14] MEDS ORDERED: *HR* HYDROcodone/Acet 5/325 mg TABLET PO ONE (13:55)
[2017-04-14] MEDS ORDERED: Haloperidol Lactate 5 MG/ML VIAL IM PRN (21:11)
[2017-04-14] MEDS ORDERED: *HR* LORazepam 1 MG TABLET PO PRN (21:11)
[2017-04-14] MEDS ORDERED: Acetaminophen 325 MG TABLET PO PRN (21:11)
[2017-04-14] MEDS ORDERED: *HR* LORazepam 2 MG/ML VIAL IM PRN (21:11)
[2017-04-14] MEDS ORDERED: Mag Hydrox/Al Hydrox/Simeth 30 ML UDC PO PRN (21:11)
[2017-04-14] MEDS ORDERED: hydrOXYzine pamoate 25 MG CAPSULE PO PRN (21:11)
[2017-04-14] MEDS ORDERED: MOM Conc 10 ML UD.LIQ PO PRN (21:11)
[2017-04-14] MEDS ORDERED: D5% in Water 1,000 ML IVC PRN (21:36)
[2017-04-14] MEDS ORDERED: *HR* Dextrose 50 % in Water (Syg) 50 ML SYRINGE IVP PRN (21:36)
[2017-04-14] MEDS ORDERED: Dextrose Gel 15 GM/37.5 ML TUBE PO PRN ×2 (21:36)
[2017-04-14] MEDS: Gabapentin 300 MG CAPSULE PO SCH (22:23)
[2017-04-14] MEDS: Divalproex (12 HR) 250 MG TABLET PO SCH (22:23)
[2017-04-14] MEDS: *HR* LORazepam 1 MG TABLET PO SCH (22:24)
[2017-04-14] MEDS: *HR* Metformin 500 MG TABLET PO SCH (22:24)
[2017-04-14] MEDS: Insulin DETEMIR 100 UNIT/ML X5UNITS SQ SCH (22:40)
[2017-04-14] MEDS: tiZANidine 4 MG TABLET PO SCH (22:42)
[2017-04-15] MEDS: Hyoscyamine SL 0.125 MG TAB.SUBL SL SCH ×4 (03:34→21:34)
[2017-04-15] MEDS: *HR* SitaGLIPtin 100 MG TABLET PO SCH ×2 (03:34→09:50)
[2017-04-15] MEDS: *HR* Metformin 500 MG TABLET PO SCH ×2 (09:50→21:30)
[2017-04-15] MEDS: Divalproex (12 HR) 500 MG TABLET PO SCH (09:51)
[2017-04-15] MEDS: *HR* GlipiZIDE 5 MG TABLET PO SCH (09:51)
[2017-04-15] MEDS: tiZANidine 4 MG TABLET PO SCH ×3 (09:52→21:29)
[2017-04-15] MEDS: Insulin DETEMIR 100 UNIT/ML X5UNITS SQ SCH ×2 (10:03→23:35)
[2017-04-15] MEDS: Gabapentin 300 MG CAPSULE PO SCH ×2 (10:50→21:31)
[2017-04-15] MEDS: *HR* LORazepam 1 MG TABLET PO SCH ×3 (10:51→21:32)
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
[2017-04-15] MEDS: Divalproex (12 HR) 250 MG TABLET PO SCH (21:32)
[2017-04-15] MEDS: Insulin LISPRO 300 UNITS/3 ML VIAL SQ SCH (23:34)
[2017-04-16] MEDS: *HR* Metformin 500 MG TABLET PO SCH ×2 (09:01→21:15)
[2017-04-16] MEDS: tiZANidine 4 MG TABLET PO SCH ×2 (09:01→15:22)
[2017-04-16] MEDS: *HR* LORazepam 1 MG TABLET PO SCH ×3 (09:01→21:13)
[2017-04-16] MEDS: *HR* GlipiZIDE 5 MG TABLET PO SCH (09:02)
[2017-04-16] MEDS: Gabapentin 300 MG CAPSULE PO SCH ×2 (09:02→21:14)
[2017-04-16] MEDS: *HR* SitaGLIPtin 100 MG TABLET PO SCH (09:02)
[2017-04-16] MEDS: FLUoxetine 20 MG CAPSULE PO SCH (09:03)
[2017-04-16] MEDS: Insulin DETEMIR 100 UNIT/ML X5UNITS SQ SCH ×2 (09:03→21:13)
[2017-04-16] MEDS: Hyoscyamine SL 0.125 MG TAB.SUBL SL SCH (09:03)
[2017-04-16] MEDS: Divalproex (12 HR) 500 MG TABLET PO SCH (09:04)
--- NOTE | 2017-04-16 16:50 | Psychiatry Progress Note ---
Date of Encounter: 04/16/17 Time of Encounter: 16:48 Subjective Interval history: Client has done reasonably well this admission. No acting out behaviors which is good for her. Very needy and attention seeking but seems to be at baseline. Denies SI today but states she feels overwhelmed. Worried about housing. Claims she "can't go to the streets." [facility] saw her yesterday and indicated they would allow her to stay for two weeks while alternative housing is found. May have a bed as early as tomorrow. Review of Systems Constitutional: Denies: fever, chills, weakness, weight change Eyes: Denies: eye pain, vision change Ears, Nose, Throat: Denies: ear pain, throat pain, dental pain, hearing loss, congestion Cardiovascular: Denies: chest pain, palpitations, dyspnea on exertion Respiratory: Denies: cough, dyspnea, wheezes Gastrointestinal: Denies: abdominal pain, nausea, vomiting, diarrhea, constipation Musculoskeletal: Denies: joint swelling, joint pain Neurological: Denies: headache, weakness, numbness, memory loss Objective: Exam Patient orientation: Yes Person, Yes Time, Yes Place Level of alertness: Alert Patient appearance: Appropriate Behavior: calm, cooperative Psychomotor activity: Normal Eye contact: Maintains Eye Contact Mood description: Irritable Affect description: congruent with mood Speech pattern: Normal rate, Normal rhythm, Normal tone Speech volume: Normal Thought process: Linear, Goal Oriented Thought content: Yes Suicidal ideation, No Homicidal ideation, No Overt delusions Perceptual disturbances: No Auditory hallucinations, No Visual hallucinations Judgment: Limited Insight: Partial Results - Vital Signs Vital Signs: Temp Pulse Resp BP Pulse Ox 97.1 F L 83 18 92/67 98 04/16/17 09:00 04/16/17 09:00 04/16/17 09:00 04/16/17 09:00 04/14/17 18:21 - Labs Labs: Laboratory Results - last 24 hr 04/15/17 04/16/17 22:44 08:12 POC Glucose 245 H 151 H Assessment and Plan (1) Depression Current visit: Yes Status: Acute Plan: Continue hospitalization, Close observation, Suicide Precautions per unit protocol, Encourage participation in unit milieu, Group Therapy, Monitor sleep, Monitor appetite Risks, benefits, side effects, alternatives discussed w/pt: Yes Patient agreeable to treatment: Yes Qualifiers: Depression Type: major depressive disorder Major depression recurrence: recurrent Active/Remission status: currently active Major depression episode severity: severe Psychotic features: without psychotic features Qualified Code(s): F33.2 - Major depressive disorder, recurrent severe without psychotic features (2) Borderline personality disorder Current visit: No Status: Acute Plan: Continue hospitalization, Close observation, Suicide Precautions per unit protocol, Encourage participation in unit milieu, Group Therapy, Monitor sleep, Monitor appetite Risks, benefits, side effects, alternatives discussed w/pt: Yes Patient agreeable to treatment: Yes Consult Discharge Plan - Plan Referrals: NONE,PCP [Primary Care Provider] -
[2017-04-16] MEDS: Divalproex (12 HR) 250 MG TABLET PO SCH (21:16)
[2017-04-16] MEDS: Insulin LISPRO 300 UNITS/3 ML VIAL SQ SCH (21:24)
[2017-04-16] MEDS: tiZANidine 4 MG TABLET PO PRN (21:26)
[2017-04-16] MEDS: Hyoscyamine SL 0.125 MG TAB.SUBL SL PRN (21:29)
[2017-04-17] MEDS: FLUoxetine 20 MG CAPSULE PO SCH (09:45)
[2017-04-17] MEDS: Divalproex (12 HR) 500 MG TABLET PO SCH (09:45)
[2017-04-17] MEDS: *HR* GlipiZIDE 5 MG TABLET PO SCH (09:45)
[2017-04-17] MEDS: Gabapentin 300 MG CAPSULE PO SCH (09:45)
[2017-04-17] MEDS: *HR* Metformin 500 MG TABLET PO SCH (09:45)
[2017-04-17] MEDS: *HR* LORazepam 1 MG TABLET PO SCH (09:46)
[2017-04-17] MEDS: *HR* SitaGLIPtin 100 MG TABLET PO SCH (09:46)
[2017-04-17] MEDS: Insulin DETEMIR 100 UNIT/ML X5UNITS SQ SCH (09:51)
[2017-04-17 10:43] VITALS: BP 97/64
[2017-04-17] MEDS: tiZANidine 4 MG TABLET PO PRN (11:32)
[2017-04-17] MEDS: Hyoscyamine SL 0.125 MG TAB.SUBL SL PRN (11:33)
--- NOTE | 2017-04-17 13:01 | Discharge Summary ---
Date of Encounter: 04/17/17 Time of Encounter: 12:50 Diagnosis - Discharge Diagnosis (1) Depression Status: Acute Qualifiers: Depression Type: major depressive disorder Major depression recurrence: recurrent Active/Remission status: currently active Major depression episode severity: severe Psychotic features: without psychotic features Qualified Code(s): F33.2 - Major depressive disorder, recurrent severe without psychotic features (2) Borderline personality disorder Status: Acute Medications - Discharge Medications Prescriptions: Atorvastatin [Lipitor] 10 mg PO HS #30 tablet Divalproex (12 HR) [Depakote (12 HR)] 250 mg PO HS #30 tablet. Divalproex (12 HR) [Depakote (12 HR)] 500 mg PO QAM #30 tablet. FLUoxetine HCl [Prozac] 20 mg PO DAILY #30 capsule Gabapentin [Neurontin] 300 mg PO BID #60 capsule glipiZIDE [Glucotrol] 5 mg PO DAILY #30 tablet Hyoscyamine SL [Levsin Sl] 0.125 mg SL TID PRN #90 tab.subl PRN Reason: Abdominal Distention Insulin DETEMIR [Levemir] 10 unit SQ DAILY 30 Days [id number] Insulin DETEMIR [Levemir] 12 unit SQ HS 30 Days [id number] Meloxicam [Mobic] 15 mg PO DAILY #60 tablet metFORMIN [Glucophage] 1,000 mg PO BID #120 tablet Omeprazole [PriLOSEC] 40 mg PO DAILY #60 capsule. Prazosin [Minipress] 2 mg PO BID #120 capsule SitaGLIPtin [Januvia] 100 mg PO DAILY #30 tablet Atorvastatin [Lipitor] 10 mg PO HS #30 tablet 04/17/17 [Rx] Divalproex (12 HR) [Depakote (12 HR)] 250 mg PO HS #30 tablet. 04/17/17 [Rx] Divalproex (12 HR) [Depakote (12 HR)] 500 mg PO QAM #30 tablet. 04/17/17 [Rx] FLUoxetine HCl [Prozac] 20 mg PO DAILY #30 capsule 04/17/17 [Rx] Gabapentin [Neurontin] 300 mg PO BID #60 capsule 04/17/17 [Rx] Hyoscyamine SL [Levsin Sl] 0.125 mg SL TID PRN #90 tab.subl 04/17/17 [Rx] Insulin DETEMIR [Levemir] 10 unit SQ DAILY 30 Days [id number] 04/17/17 [Rx] Insulin DETEMIR [Levemir] 12 unit SQ HS 30 Days [id number] 04/17/17 [Rx] Insulin LISPRO [HumaLOG] 0 units SQ HS #0 vial 04/17/17 [Rx] Meloxicam [Mobic] 15 mg PO DAILY #60 tablet 04/17/17 [Rx] Omeprazole [PriLOSEC] 40 mg PO DAILY #60 capsule. 04/17/17 [Rx] Prazosin [Minipress] 2 mg PO BID #120 capsule 04/17/17 [Rx] SitaGLIPtin [Januvia] 100 mg PO DAILY #30 tablet 04/17/17 [Rx] glipiZIDE [Glucotrol] 5 mg PO DAILY #30 tablet 04/17/17 [Rx] metFORMIN [Glucophage] 1,000 mg PO BID #120 tablet 04/17/17 [Rx] 3 Allergy/AdvReac Type Severity Reaction Status Date / Time sulfamethoxazole Allergy See Verified 04/14/17 10:52 [From Bactrim] Comments trimethoprim [From Bactrim] Allergy See Verified 04/14/17 10:52 Comments propranolol AdvReac Anxiety Verified 04/14/17 10:52 sumatriptan [From Imitrex] AdvReac Hypotension Verified 04/14/17 10:52 Provider Date of admission: 04/14/17 19:54 Primary care physician: PCP NONE Discharging clinician: Sabrina French Assessment and Plan - Patient/Caregiver Discharge Instructions Activity: resume usual activities as tolerated Diet: diabetic diet - Follow up Plan Follow up with: [facility] [Outside] (The hospitality specialist will contact you directly to schedule your intake appointment for case management and mental health counseling services. ) [facility] [Outside] - 04/22/17 9:00 am (You are going into mental health respite at [facility] on discharge from the hospital. While there, you will be seen daily by the clinic counselors and bilingual patient support caseworker, both individually and in group. You will see your designated caser up, Letitia Snow, on 04/22/2017 at 9:00am You will also see Nelia Diez for outpatient psychiatric assessment and medication management on 05/25/2017 at 8:00am) Functional capacity at discharge: independent ambulation Overall status at discharge: Stable Disposition: Transfer Other Hospital Course Hospital course: Ms. Collins is a 32 year old female who was admitted for SI and HI. Client is well known at [facility] and she has frequent admissions. Client is comfortable in the hospital and tends to like to stay. She started denying SI/HI almost immediately but seemed to be making herself comfortable on the unit. Has been kicked out of most residential placements and has limited housing options. [facility] came out to evaluate her and offered her two weeks of residential services. Client stated she would take the bed but fears homelessness and she will likely represent to the ER if she is unable to secure alternative housing. Client did ask if she could be transferred to "[facility]" for a "shelter" inpatient stay. Discussed how she does not meet inpatient criteria and that prolonged hospitalizations are counterproductive. Primary diagnosis is Borderline Personality Disorder. Client frequently acts out to get her needs met when she is in the hospital but she did not this admission. Exerted more self control this admission than in the past. Started on Prozac in place of Cymbalta as she felt Prozac worked better for her in the past. Other home meds continues as prescribed. Client denying SI/HI/AH/VH on day of discharge. - Time Spent with Patient Total time spent providing and/or coordinating discharge services: Quality - Multiple Antipsychotics Patient discharged on 2 or more antipsychotic medications: No Procedures - Procedures Procedures: Medication Management, Crisis Stabilization, Supportive Therapy, Group Therapy Mental Status Exam - Mental Status Exam Patient orientation: Yes Person, Yes Time, Yes Place Level of alertness: Alert Patient appearance: Appropriate Behavior: calm, cooperative Psychomotor activity: Normal Eye contact: Maintains Eye Contact Mood description: Irritable Affect description: congruent with mood Speech pattern: Normal rate, Normal rhythm, Normal tone Speech Volume: Normal Thought process: Linear, Goal Oriented Thought Content: No Suicidal ideation, No Homicidal ideation, No Overt delusions Perceptual Disturbances: No Auditory hallucinations, No Visual hallucinations Judgment: Limited Insight: Partial
[2017-04-17] MEDS ORDERED: *HR* LORazepam 0.5 MG TABLET PO SCH (15:00)
== END 2017-04-17 17:30 | disposition other institution (70) | DRG 751 ==
LOC: EMEROO 10:40 → 1ANU 19:30
PROVIDERS: ADMIT Psychiatry & Neurology Psychiatry; ATTEND Psychiatry & Neurology Psychiatry